=== PATIENT | female | born 1935 | race Caucasian/White ===

== ENCOUNTER 2016-12-11 10:49 | Emergency (ER) | payer OTHER ==
[~2016-12-11 10:49] MED LIST: ALBUTEROL 3 ML3 ML INH; AMITRIPTYLINE150 M2 PO; ASPIRIN CHILDRE81 MG PO; CEFTIN500 MG PO; CO Q-1050 MG PO; FERROUS SULFAT325 M1 PO; FISH OIL CONCEN1 SGL PO; FOLIC ACID 1 MG PO; FOLIC ACID0.4 MG PO; LEVOTHYROXIN0.088 M1 PO; LISINOPRIL10 MG PO; LOPRESSOR 25MG25 MG PO; METFORMIN HCL500 M3 PO; MOXIFLOXACIN H400 M1 PO; PERCOCET 5-3251 EACH PO; ROZEREM8 MG PO; SIMVASTATIN80 MG PO; SPIRIVA 18 MCG18 MCG INH; SYMBICORT 160/41 PUF INH; TUDORZA PR400 MCG/Ac INH; VITAMIN D32000 UNI1 PO
--- NOTE | 2016-12-11 12:23 | ED AMS/SEIZURE/WEAK/DIZZY ---
See Addendum History of Present Illness General Chief Complaint: Hip Injury Stated Complaint: BIBA KNEE AND HIP PAIN] Source: patient, family, old records Exam Limitations: poor historian Vital Signs & Intake/Output Vital Signs & Intake/Output Vital Signs Date Time Temp Pulse Resp B/P Pulse O2 O2 Flow FiO2 Ox Delivery Rate 12/11 1055 96.1 91 20 165/73 98 Room Air Allergies Coded Allergies: azithromycin (Mild, INTESTINAL BLEEDING 04/09/16) Reconcile Medications Aclidinium Sulphur (Tudorza Pressair) 400 MCG/ACTUATION AER.POW.BA 1 PUF INH BID COPD (Reported) Albuterol Sulfate (Proventil) 2.5 MG/3 ML NEB 3 ML INH Q4P PRN SHORTNESS OF BREATH Amitriptyline HCl 150 MG TABLET 1 TAB PO QPM DEPRESSION (Reported) Aspirin (Children's Aspirin) 81 MG TAB.CHEW 1 TAB PO DAILY HEART HEALTH ( Reported) Because of your GI bleed, do NOT take this medicine from 06/18/14-06/24/14. You may start taking this medicine again 06/25/14 per your regular daily routine. Budesonide/Formoterol Fumara (Symbicort 160-4.5 Mcg Inhaler) 160 MCG/4.5 MCG PUF 2 PUF INH DAILY COPD (Reported) Cholecalciferol (Vitamin D3) (Vitamin D3) 2,000 UNIT TABLET 1 TAB PO DAILY SUPPLEMENT (Reported) Coenzyme Q10 (Co Q-10) 50 MG CAP 2 TAB PO DAILY SUPPLEMENT (Reported) Ferrous Sulfate 325 MG TAB 325 MG PO TID low blood count Please take this supplement for 2 weeks with your other home medications. Folic Acid 1 MG TAB 1 MG PO DAILY FOLIC ACID SUPPLEMENT (Reported) Levothyroxine Sodium 0.088 MG TAB 1 TAB PO DAILY <THYROID (Reported) Lisinopril 10 MG TABLET 1 TAB PO DAILY HEART (Reported) Metformin HCl 500 MG TABLET 1 TAB PO BID DIABETES (Reported) Metoprolol Tartrate 25 MG TABLET 1 TAB PO DAILY HEART (Reported) OMEGA-3 FATTY ACIDS (Fish Oil Concentrate) 1,000 MG CAPSULE 1 TAB PO DAILY SUPPLEMENT (Reported) Simvastatin (Zocor) 80 MG TABLET 1 TAB PO QPM CHOLESTEROL (Reported) Tiotropium [place]ph[place] (Spiriva) 18 MCG CAP 1 CAP INH DAILY COPD (Reported) Triage Note: 81 YO FEMALE BIBA FROM HOME. EMS WAS CALLED FOR LOW BLOOD SUGAR. ON EMS ARRIVAL PTS BLOOD SUGAR WAS 109, PTS FAMILY WAS ALSO CONCERNED THAT PT SLID OUT OF CHAIR THIS AM LANDING ON BILATERAL KNEES. NO OBVIOUS INJURY NOTED. PT C/O R SIDED HIP PAIN. PT ABLE TO MOVE ALL EXTREMITIES. PT ALERT AND ORIENTED X3 AT THIS TIME. FAMILY AT BEDSIDE Triage Nurses Notes Reviewed? yes HPI: Patient presents for evaluation of altered mental status that began about 8:00 this morning with generalized weakness and difficulty ambulating. The family was concerned that since the patient does not maintain a proper diabetic diet, she could be in a diabetic coma. They contacted paramedics who tested her fingerstick blood sugar level at 140. She has a history of severe hip and knee pains secondary to arthritis. She had x-rays done last week confirming the arthritis. Recently she has been unable to walk without assistance secondary to pain. A cortisone injection is pending for this. Past History Travel History Traveled to [place] past 21 day No Medical History Any Pertinent Medical History? see below for history Neurological: NONE EENT: cataracts Cardiovascular: hypertension Respiratory: emphysema, O2 DEP @ 2L Gastrointestinal: NONE Hepatic: NONE Renal: NONE Musculoskeletal: NONE Psychiatric: NONE Endocrine: diabetes, hypothyroidism Blood Disorders: NONE Cancer(s): L BREAST CANCER ACCESS SPEC/Reproductive: NONE History of MRSA: No History of VRE: No History of CDIFF: No Tetanus Vaccine: 04/06/13 Surgical History Surgical History: non-contributory Psychosocial History Who do you live with Spouse Services at Home None What is your primary language Finnish Tobacco Use: Never used Family History Hx Contributory? No Review of Systems Review of Systems Constitutional: Reports: weakness. EENTM: Reports: no symptoms. Respiratory: Reports: no symptoms. Cardiovascular: Reports: no symptoms. GI: Reports: no symptoms. Genitourinary: Reports: no symptoms. Musculoskeletal: Reports: see HPI. Skin: Reports: no symptoms. Neurological/Psychological: Reports: cognitive dysfunction. Hematologic/Endocrine: Reports: no symptoms. Immunologic/Allergic: Reports: no symptoms. All Other Systems: Reviewed and Negative Physical Exam Physical Exam General Appearance: SEE BELOW Comments: Gen.: Well-nourished, well-developed, no acute respiratory distress. Moderate distress secondary to right hip and knee pain. Head: Normocephalic, atraumatic. Eyes: Normal inspection bilaterally Ears: Normal inspection bilaterally Nose: Normal inspection Throat/mouth : Moist mucosa Neck: Supple, full range of motion, no goiter Heart: Regular rate and rhythm, no murmurs rubs or gallops Lungs: Clear to auscultation bilaterally with normal air entry Chest: Nontender Back: Normal range of motion Abdomen: Soft, nontender, nondistended, normal bowel sounds Extremities: Normal range of motion grossly, equal radial pulses, no cyanosis clubbing or edema, no ecchymoses or soft tissue swelling in the area of the right hip or right knee. Neurologic: Cranial nerves grossly intact, speech is clear Skin: warm and dry Psychiatric: Generally Calm but anxious at times it secondary to pain, cooperative, no apparent delusions or hallucinations Core Measures ACS in differential dx? No CVA/TIA Diagnosis: No Severe Sepsis Present: No Septic Shock Present: No Progress Differential Diagnosis: DEHYDRATION, ANEMIA, ELECTROLYTE ABNORMALITY Plan of Care: Orders Procedure Date/time Status Add-on Test (ER Only) 12/11 1342 Active URINE DRUGS OF ABUSE 12/11 1314 Active URINALYSIS 12/11 1222 Complete THYROID STIMULATING HORMONE 12/11 1222 Complete COMPREHENSIVE METABOLIC PANEL 12/11 1222 Complete CBC WITHOUT DIFFERENTIAL 12/11 1222 Complete Laboratory Tests 12/11/16 1314: Methadone Screen Pending, Barbiturate Screen Pending, Ur Phencyclidine Scrn Pending, Amphetamines Screen Pending, U Benzodiazepines Scrn Pending, Urine Cocaine Screen Pending, Urine Cannabis Screen Pending, Urine Color YEL, Urine Clarity CLEAR, Urine pH 7.0, Ur Specific [place] <= 1.005, Urine Protein NEG, Urine Ketones NEG, Urine Nitrite NEG, Urine Bilirubin NEG, Urine Urobilinogen 0.2, Ur Leukocyte Esterase NEG, Ur Microscopic EXAM NOT REQUIRED, Urine Hemoglobin NEG, Urine Glucose NEG 12/11/16 1238: Anion Gap 9, Estimated GFR > 60, BUN/Creatinine Ratio 20.0, Glucose 122 H, Calcium 9.8, Total Bilirubin 0.6, AST 19, ALT 31, Alkaline Phosphatase 56, Total Protein 7.0, Albumin 4.2, Globulin 2.8, Albumin/Globulin Ratio 1.5, TSH 0.394, CBC w Diff NO MAN DIFF REQ, RBC 3.83 L, MCV 95.3, MCH 32.2 H, RDW 12.4, MPV 7.4, Gran % 75.5 H, Lymphocytes % 18.3 L, Monocytes % 5.5, Eosinophils % 0.4, Basophils % 0.3, Absolute Granulocytes 5.9, Absolute Lymphocytes 1.4, Absolute Monocytes 0.4, Absolute Eosinophils 0, Absolute Basophils 0, PUBS MCHC 33.8 Initial ED EKG: none Comments: 12/11/2016 2:23:10 PM I have updated the patient and her family on test results. She is much more comfortable after medications here in the emergency department. We have a long discussion about the low sodium level and she will fluid restrict (the patient tends to drink a lot of fluid and typically eats only yogurt and banana and toast). Departure Departure Disposition: HOME OR SELF CARE Condition: Stable Clinical Impression Primary Impression: Arthritis pain Secondary Impressions: Hyponatremia Referrals: EDGAR CHIN,LANA Rawls (PCP/Family) Additional Instructions: Limit free water to 1.5 L per day. Try to enhance the nutritional intake. Follow-up with your primary care doctor for recheck of your sodium level this week. Return if any concerns or sudden worsening. Thank you for choosing the [facility] Emergency Department for your care. It was a pleasure to serve you today. Martín Lemus M.D. [facility] Departure Forms: Customer Survey General Discharge Information
[2016-12-11 12:44] LABS: ABSOLUTE BASOPHIL COUNT 0 /CUMM (0.0-0.2); ABSOLUTE EOSINOPHIL COUNT 0 /CUMM (0.0-0.7); ABSOLUTE GRANULOCYTE CT 5.9 /CUMM (1.4-6.5); ABSOLUTE LYMPH COUNT 1.4 /CUMM (1.2-3.4); ABSOLUTE MONOCYTE COUNT 0.4 /CUMM (0.10-0.60); BASOPHIL % 0.3 % (0.0-2.0); EOSINOPHIL % 0.4 % (0-5); GRANULOCYTE % 75.5 % (42.2-75.2); HEMATOCRIT 36.5 % (37-47); MEAN CORPUSCULAR HGB 32.2 PG (27.0-31.0); MEAN CORPUSCULAR HGB CONC 33.8 G/DL (33.0-37.0); MEAN CORPUSCULAR VOLUME 95.3 FL (81.0-99.0); MEAN PLATELET VOLUME 7.4 FL (7.4-10.4); PLATELET COUNT 223 /CUMM (130-400); RBC DISTRIBUTION WIDTH 12.4 % (11.5-14.5); RED BLOOD CELL CT 3.83 /CUMM (4.20-5.40); WHITE BLOOD CELL COUNT 7.8 /CUMM (4.8-10.8)
[2016-12-11] MEDS ORDERED: METOPROLOL TART25 M1 PO (12:48)
[2016-12-11] MEDS ORDERED: LISINOPRIL10 M1 PO (12:51)
[2016-12-11 14:39] VITALS: BP 142/84
== END 2016-12-11 14:40 ==
LOC: ERH 10:49
PROVIDERS: Emergency Medicine
DX: E87.1 Hypo-osmolality and hyponatremia (principal); M16.10 Unilateral primary osteoarthritis, unspecified hip; M17.9 Osteoarthritis of knee, unspecified
CPT/HCPCS: 80307; 81003; 96372

== ENCOUNTER 2017-03-31 15:22 | Emergency (ER) | payer OTHER ==
[~2017-03-31 15:22] MED LIST changes: +LISINOPRIL10 M1 PO; +METOPROLOL TART25 M1 PO
--- NOTE | 2017-03-31 15:43 | ED PSYCHIATRIC COMPLAINT ---
History of Present Illness General Chief Complaint: Psychiatric Related Complaint Stated Complaint: BIBA PSYCH EVAL Source: family, old records Exam Limitations: dementia Vital Signs & Intake/Output Vital Signs & Intake/Output Vital Signs Date Time Temp Pulse Resp B/P B/P Pulse O2 O2 Flow FiO2 Mean Ox Delivery Rate 03/31 1912 97.0 81 16 133/62 97 Nasal 2.0L Cannula 03/31 1717 Nasal Cannula 03/31 1525 96.4 86 24 126/58 85 Nasal 2.0L Cannula Allergies Coded Allergies: azithromycin (Mild, INTESTINAL BLEEDING 04/09/16) Reconcile Medications Aclidinium [place] (Tudorza Pressair) 400 MCG/ACTUATION AER.POW.BA 1 PUF INH BID COPD (Reported) Albuterol Sulfate (Proventil) 2.5 MG/3 ML NEB 3 ML INH Q4P PRN SHORTNESS OF BREATH Amitriptyline HCl 150 MG TABLET 1 TAB PO QPM DEPRESSION (Reported) Aspirin (Children's Aspirin) 81 MG TAB.CHEW 1 TAB PO DAILY HEART HEALTH ( Reported) Because of your GI bleed, do NOT take this medicine from 06/18/14-06/24/14. You may start taking this medicine again 06/25/14 per your regular daily routine. Budesonide/Formoterol Fumara (Symbicort 160-4.5 Mcg Inhaler) 160 MCG/4.5 MCG PUF 2 PUF INH DAILY COPD (Reported) Cholecalciferol (Vitamin D3) (Vitamin D3) 2,000 UNIT TABLET 1 TAB PO DAILY SUPPLEMENT (Reported) Coenzyme Q10 (Co Q-10) 50 MG CAP 2 TAB PO DAILY SUPPLEMENT (Reported) Ferrous Sulfate 325 MG TAB 325 MG PO TID low blood count Please take this supplement for 2 weeks with your other home medications. Folic Acid 1 MG TAB 1 MG PO DAILY FOLIC ACID SUPPLEMENT (Reported) Levothyroxine Sodium 0.088 MG TAB 1 TAB PO DAILY <THYROID (Reported) Lisinopril 10 MG TABLET 1 TAB PO DAILY HEART (Reported) Metformin HCl 500 MG TABLET 1 TAB PO BID DIABETES (Reported) Metoprolol Tartrate 25 MG TABLET 1 TAB PO DAILY HEART (Reported) [NONE] STOOL SPECIMEN FOR C DIFF OMEGA-3 FATTY ACIDS (Fish Oil Concentrate) 1,000 MG CAPSULE 1 TAB PO DAILY SUPPLEMENT (Reported) Simvastatin (Zocor) 80 MG TABLET 1 TAB PO QPM CHOLESTEROL (Reported) Tiotropium [place] (Spiriva) 18 MCG CAP 1 CAP INH DAILY COPD (Reported) Triage Note: PT BIBA FROM HOME FOR INCREASED AGITATION WITH HX OF DEMENTIA. PT CALM AND EYES CLOSED ON ARRIVAL. PER EMS, PT WAS QUIET DURING TRANSPORT AND WAS MORE VERBALLY AGITATED AT HOME. Triage Nurses Notes Reviewed? yes HPI: Patient has a history of dementia however is having agitated outbursts at home. Symptoms have been worsening over the past few weeks. Patient will be in her usual state of mental health and then just explode verbally. Patient was screaming at the doctor on the phone today so the patient was sent in for geropsychiatric evaluation. Family states that there've been no fevers. They state that her symptoms have been worsening. She went to [facility] over the weekend and they prescribed Xanax and sent her home. Past History Medical History Any Pertinent Medical History? see below for history Neurological: NONE EENT: cataracts Cardiovascular: hypertension Respiratory: emphysema, O2 DEP @ 2L Gastrointestinal: NONE Hepatic: NONE Renal: NONE Musculoskeletal: NONE Psychiatric: NONE Endocrine: diabetes, hypothyroidism Blood Disorders: NONE Cancer(s): L BREAST CANCER SEO INTERN/Reproductive: NONE History of MRSA: No History of VRE: No History of CDIFF: No Tetanus Vaccine: 04/06/13 Surgical History Surgical History: non-contributory Psychosocial History Who do you live with Spouse Services at Home None What is your primary language Georgian Tobacco Use: Quit >30 days ago ETOH Use: denies use Illicit Drug Use: denies illicit drug use Family History Hx Contributory? No Review of Systems Review of Systems Constitutional: Reports: no symptoms. Neurological/Psychological: Reports: see HPI. Physical Exam Physical Exam General Appearance: well developed/nourished, mild distress Head: atraumatic, normal appearance Eyes: Bilateral: PERRL, EOMI. Ears, Nose, Throat: normal pharynx, normal ENT inspection Neck: normal inspection, supple Respiratory: normal breath sounds, chest non-tender, no respiratory distress, lungs clear Cardiovascular: regular rate/rhythm, normal peripheral pulses Gastrointestinal: normal bowel sounds, soft, non-tender, no organomegaly Neurological/Psychiatric: no motor/sensory deficits, agitated SAD PERSONS Done? CRISIS CONSULT OBTRAINED Progress Differential Diagnosis: dementia, drug intoxication, drug overdose, drug withdrawal, electrolyte abnormality Plan of Care: Orders Procedure Date/time Status ED CRISIS PSYCH CONSULT 03/31 1806 Active Straight Cath 03/31 1628 Active Continuous Observation Monitor 03/31 154 Active URINE DRUGS OF ABUSE 03/31 154 Complete URINALYSIS 03/31 154 Complete ETHANOL 03/31 1542 Complete COMPREHENSIVE METABOLIC PANEL 03/31 154 Complete CBC WITHOUT DIFFERENTIAL 03/31 154 Complete EKG 03/31 154 Active Laboratory Tests 03/31/17 1702: Urine Opiates Screen < 100.00, Methadone Screen 86, Barbiturate Screen < 60, Ur Phencyclidine Scrn < 6.00, Amphetamines Screen < 100, U Benzodiazepines Scrn 165 , Urine Cocaine Screen < 50, Urine Cannabis Screen < 5.00, Urine Color YEL, Urine Clarity CLEAR, Urine pH 6.0, Ur Specific [place] 1.010, Urine Protein NEG, Urine Ketones NEG, Urine Nitrite NEG, Urine Bilirubin NEG, Urine Urobilinogen 0.2, Ur Leukocyte Esterase SMALL H, Ur Microscopic SEDIMENT EXAMINED, Urine WBC 1-3 H, Urine Bacteria FEW H, Urine Hemoglobin SMALL H, Urine Glucose NEG 03/31/17 1615: Anion Gap 8, Estimated GFR > 60, BUN/Creatinine Ratio 22.0, Glucose 125 H, Calcium 9.8, Total Bilirubin 0.3, AST 17, ALT 32, Alkaline Phosphatase 51, Total Protein 6.8, Albumin 4.1, Globulin 2.7, Albumin/Globulin Ratio 1.5, CBC w Diff NO MAN DIFF REQ, RBC 3.80 L, MCV 93.9, MCH 31.9 H, RDW 12.1, MPV 7.9, Gran % 82.9 H, Lymphocytes % 10.0 L, Monocytes % 4.7, Eosinophils % 2.0, Basophils % 0.4, Absolute Granulocytes 10.2 H, Absolute Lymphocytes 1.2, Absolute Monocytes 0.6, Absolute Eosinophils 0.2, Absolute Basophils 0, PUBS MCHC 33.9, Serum Alcohol < 10.0 Initial ED EKG: NSR, no ST T wave changes Prior EKG: unchanged Comments: The patient has been seen and evaluated by the patient's clinician. Patient stable for discharge. Departure Departure Disposition: HOME OR SELF CARE Condition: Stable Clinical Impression Primary Impression: Dementia Referrals: EDGAR CHIN,LANA Rawls (PCP/Family) Additional Instructions: FOLLOW UP WITH GERIANTOLOGIST ZAIRA WILL CALL FOR APPOINMENT RETURN FOR ANY CONCERNS Departure Forms: Customer Survey General Discharge Information
[2017-03-31 16:34] LABS: ABSOLUTE BASOPHIL COUNT 0 /CUMM (0.0-0.2); ABSOLUTE EOSINOPHIL COUNT 0.2 /CUMM (0.0-0.7); ABSOLUTE GRANULOCYTE CT 10.2 /CUMM (1.4-6.5); ABSOLUTE LYMPH COUNT 1.2 /CUMM (1.2-3.4); ABSOLUTE MONOCYTE COUNT 0.6 /CUMM (0.10-0.60); BASOPHIL % 0.4 % (0.0-2.0); GRANULOCYTE % 82.9 % (42.2-75.2); HEMATOCRIT 35.7 % (37-47); MEAN CORPUSCULAR HGB 31.9 PG (27.0-31.0); MEAN CORPUSCULAR HGB CONC 33.9 G/DL (33.0-37.0); MEAN CORPUSCULAR VOLUME 93.9 FL (81.0-99.0); MEAN PLATELET VOLUME 7.9 FL (7.4-10.4); PLATELET COUNT 232 /CUMM (130-400); RBC DISTRIBUTION WIDTH 12.1 % (11.5-14.5); WHITE BLOOD CELL COUNT 12.3 /CUMM (4.8-10.8)
--- NOTE | 2017-03-31 17:49 | RADIOLOGY REPORT ---
EXAMINATION: XR PORTABLE CHEST CLINICAL INFORMATION: Shortness of breath COMPARISON: 12/17/2016 TECHNIQUE: Portable frontal view of the chest was obtained. FINDINGS: The lungs are hyperexpanded, with known severe emphysema. No consolidation, edema, or effusion. No pneumothorax. The cardiac mediastinal silhouette is unchanged, with a calcified aorta. IMPRESSION: Emphysema. No acute pulmonary findings.
[2017-03-31 20:49] VITALS: BP 114/55
--- NOTE | 2017-03-31 21:13 | NUR ---
Case mgmnt TSF: I was called back by oncdanay RN Liam from [facility]. I set up services for patient. Nursing and SW consult. They will call us back if any issues. I will fax over all clinical. I've updated Lena from crisis. Case mgmnt continuing to follow.
--- NOTE | 2017-03-31 21:45 | ED PSYCH CRISIS CONSULTATION ---
Crisis Consult Basic Assessment Date of Consult: 03/31/17 Responsible Person/Accompanied By: N/A Insurance Authorization: Insurance #1: Insurance name: [facility] Phone number: Policy number: [id number] Group number: [id number] Authorization number: ED Provider: Patient's ED Provider: LANA BRITTON MD Primary Care Physician: Patient's PCP: LANA HERNÁNDEZ MD PCP's Current Psychiatrist: None Chief Complaint: Psychiatric Related Complaint Patient's Quote: "I'm extremely nervous, more then I've ever been." Present Illness: The patient is a 81 year old, , female presenting to the ED, after her daughter (Aminata [phone]), felt overwhelmed with the patients "demanding attitude." The patient is oriented to person, place and is aware that it is 2016, however she believes that it is January and Wednesday. The patients other daughter, Janelle Bueno ([phone]), was present in the ED to provide collateral. The patient presents calm, with repetitive speech, ruminating on her anxiety, however did not appear overtly anxious at the time. The patient lives at home with her and her daughter, Aminata, who helps to care for her. The patient does have difficulty breathing and requires Oxygen 24 hours a day, noting that her anxiety increases when she has trouble breathing. The patient denies any current or history of SI / HI / AH / VH. She denies any current or history of mental health or substance abuse issues or treatment. Per Janelle the patient did take "Valium," when she was younger, "but she had 5 kids." Janelle notes that they took the patient to [facility] over the weekend , for her increased anxiety and anger and they prescribed medications. Janelle is not aware if the patient spoke with the Crisis team at [facility]. Janelle notes that they did follow up with the patients primary care physician Cher Babcock APRN, who recommended that they see Dr. Kaylee Mccallum, who specializes in Geriatric Medicine. Janelle believes that the patient is not a risk to herself or others and can return home to follow up with outpatient. PATRICIA spoke to the patients other daughter, Aminata, who notes that she would like the patient to stay in the ED for a few days, so she can have a break. Aminata notes that the patient has been angry and demanding. Aminata notes that the patient has threatened to hit her, if she does not get her way. Aminata confirms that the patinet has never actually hit her or been violent towards her. PATRICIA discussed visiting nurse services and having a social work consult in the home, to assess for services. Amniata believes that having a social media assistant come in the home to evaluate, would be beneficial, as she states that she needs help caring for the patient. Patient's Address: [address] [place] [address] Other Phone Number: [phone] NANCY Who Do You Live With? Spouse Family/Informants Interviewed: Patricia spoke to 2 of the patients daughters, Aminata ) and Janelle ([phone]. Allergies - Coded Allergies: azithromycin (Mild, INTESTINAL BLEEDING 04/09/16) Current Medications - Scheduled Medications Aclidinium [place] (Tudorza Pressair) 400 MCG/ACTUATION AER.POW.BA 1 PUF INH BID COPD (Reported) Entered as Reported by CAITLIN BURT on 06/16/14 005 Amitriptyline HCl 150 MG TABLET 1 TAB PO QPM DEPRESSION (Reported) Entered as Reported by CAITLIN BURT on 06/16/14 005 Aspirin (Children's Aspirin) 81 MG TAB.CHEW 1 TAB PO DAILY HEART HEALTH ( Reported) Entered as Reported by CAITLIN BURT on 06/16/14 005 Budesonide/Formoterol Fumara (Symbicort 160-4.5 Mcg Inhaler) 160 MCG/4.5 MCG PUF 2 PUF INH DAILY COPD (Reported) Entered as Reported by CAITLIN BURT on 06/16/14 005 Cholecalciferol (Vitamin D3) (Vitamin D3) 2,000 UNIT TABLET 1 TAB PO DAILY SUPPLEMENT (Reported) Entered as Reported by CAITLIN BURT on 06/16/14 005 Coenzyme Q10 (Co Q-10) 50 MG CAP 2 TAB PO DAILY SUPPLEMENT (Reported) Entered as Reported by CAITLIN BURT on 06/16/14 005 Ferrous Sulfate 325 MG TAB 325 MG PO TID low blood count 14 Days Folic Acid 1 MG TAB 1 MG PO DAILY FOLIC ACID SUPPLEMENT (Reported) Entered as Reported by LATOYA DUQUE MD on 08/13/15 0551 Levothyroxine Sodium 0.088 MG TAB 1 TAB PO DAILY <THYROID #90 (Reported) Entered as Reported by CAITLIN BURT on 06/16/14 0052 Lisinopril 10 MG TABLET 1 TAB PO DAILY HEART #90 (Reported) Entered as Reported by TWYLA ODOM on 12/11/16 1251 Metformin HCl 500 MG TABLET 1 TAB PO BID DIABETES (Reported) Entered as Reported by CAITLIN BURT on 06/16/14 0055 Metoprolol Tartrate 25 MG TABLET 1 TAB PO DAILY HEART 90 Days (Reported) Entered as Reported by TWYLA ODOM on 12/11/16 1248 OMEGA-3 FATTY ACIDS (Fish Oil Concentrate) 1,000 MG CAPSULE 1 TAB PO DAILY SUPPLEMENT (Reported) Entered as Reported by CAITLIN BURT on 06/16/14 0054 Simvastatin (Zocor) 80 MG TABLET 1 TAB PO QPM CHOLESTEROL (Reported) Entered as Reported by CAITLIN BURT on 06/16/14 0051 Tiotropium Adair (Spiriva) 18 MCG CAP 1 CAP INH DAILY COPD #30 (Reported) Entered as Reported by MYLES ANAYA MD on 08/14/15 1435 Scheduled PRN Medications Albuterol Sulfate (Proventil) 2.5 MG/3 ML NEB 3 ML INH Q4P PRN SHORTNESS OF BREATH 30 Days Prescribed by MYLES ANAYA MD on 08/15/15 Miscellaneous Medications [NONE] Prescribed by PETER OROZCO MD on 12/11/16 Laboratory Results: Laboratory Tests 03/31/17 1702: Urine Opiates Screen < 100.00, Methadone Screen 86, Barbiturate Screen < 60, Ur Phencyclidine Scrn < 6.00, Amphetamines Screen < 100, U Benzodiazepines Scrn 165 , Urine Cocaine Screen < 50, Urine Cannabis Screen < 5.00, Urine Color YEL, Urine Clarity CLEAR, Urine pH 6.0, Ur Specific [place]o 1.010, Urine Protein NEG, Urine Ketones NEG, Urine Nitrite NEG, Urine Bilirubin NEG, Urine Urobilinogen 0.2, Ur Leukocyte Esterase SMALL H, Ur Microscopic SEDIMENT EXAMINED, Urine WBC 1-3 H, Urine Bacteria FEW H, Urine Hemoglobin SMALL H, Urine Glucose NEG 03/31/17 1615: Anion Gap 8, Estimated GFR > 60, BUN/Creatinine Ratio 22.0, Glucose 125 H, Calcium 9.8, Total Bilirubin 0.3, AST 17, ALT 32, Alkaline Phosphatase 51, Total Protein 6.8, Albumin 4.1, Globulin 2.7, Albumin/Globulin Ratio 1.5, CBC w Diff NO MAN DIFF REQ, RBC 3.80 L, MCV 93.9, MCH 31.9 H, RDW 12.1, MPV 7.9, Gran % 82.9 H, Lymphocytes % 10.0 L, Monocytes % 4.7, Eosinophils % 2.0, Basophils % 0.4, Absolute Granulocytes 10.2 H, Absolute Lymphocytes 1.2, Absolute Monocytes 0.6, Absolute Eosinophils 0.2, Absolute Basophils 0, PUBS MCHC 33.9, Serum Alcohol < 10.0 Past History Past Medical History Neurological: NONE EENT: cataracts Cardiovascular: hypertension Respiratory: emphysema, O2 DEP @ 2L Gastrointestinal: NONE Hepatic: NONE Renal: NONE Musculoskeletal: NONE Psychiatric: anxiety Endocrine: diabetes, hypothyroidism Blood Disorders: NONE Cancer(s): L BREAST CANCER 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 Physical Limitations (Interventions): The patient does have difficulty with mobility and requires constant Oxygen. Psychiatric Treatment History Psych Treatment Psychiatric Treatment No Inpatient Treatment No Outpatient Treatment No Location of Treatment N/A Reason for Treatment N/A Dates of Treatment N/A Response to Treatment N/A Diagnosis by History: N/A Substance Use/Abuse History Drug Use/Abuse Substances Used/Abused No First Use N/A Last Used N/A How much used/taken N/A How often N/A For how long N/A Route of use N/A Substance Abuse Treatment Substance Abuse Treatment Past Substance Abuse TX No Inpatient Treatment No Outpatient Treatment No Location of Treatment N/A Reason for Treatment N/A Dates of Treatment N/A Response to Treatment N/A Comments: N/A Current Mental Status Mental Status Orientation: Current situation, Person, Place Affect: Anxious Speech: Soft (repetitive) Neuro-vegetative: Anxiety Appearance Appearance- Dress/Hygiene: The patient was sitting in bed, in hospital attire, neat, clean and well kempt. Behaviors Thought Process: WNL Thought Content: The patient was focused on her anxiety and her breathing issues. Memory: WNL Insight: Fair SI/HI Risk Assessment Past Suicidal Ideation/Attempts No Current Suicidal Ideation/Att No Past Homicidal Ideation/Att: No Current Homicidal Ideation/Attempts No Degree of Intent: None Danger To: N/A Gravely Disabled: N/A Risk Factors: age (under 24/over 65), high anxiety/distress Lethality Ratin PTSD Checklist PTSD Done? patient declined (Pt. denies trauma or abuse hx.) ED Management Sitter: Yes Restraints: No DSM5/PS Stressors/Medical Prob Diagnosis' (DSM 5, Stressors, Medical): F41.9 Unspecified Anxiety Disorder Current GAF: 55 Comments: N/A Departure Disposition Psych Medical Clearance Date: 03/31/17 Medically Cleared at: 0 Time Started: 1929 Time Ended: 2029 Psychiatrist Consulted: Dr. Hart Date Disposition Established: 03/31/17 Time Disposition Established: 2044 Plan for Disposition - Modality: D/C home to follow up with VNA and Dr. Kaylee Mccallum Facility: VNA arranged through Case Management Contact: N/A Telephone: N/A Rationale for Disposition: The patient presents with irritabilty and anxiety, related to her difficulty breathing. Her family helps to care for her, however are struggling with her increasing needs. She denies any SI / HI / VH / AH. Per her daughters, she has been increasingly more agitated and confrontational, when she does not get her way. Case discussed with Dr. Hart and he does not find her to be an acute risk to self or others and will discharge her to follow up with Dr. Kaylee Mccallum, who they were referred to by her PCP. SW discussed a VNA referral to help assess for services in the home and the family was in agreement. Yolanda from Case Management assisted in setting up the referral to the VNA, a social media assistant will be requested. Additional Instructions: N/A Referrals LANA HERNÁNDEZ MD (PCP/Family)
== END 2017-03-31 21:15 ==
LOC: ERH 15:22
PROVIDERS: Emergency Medicine
DX: F03.90 Unspecified dementia, unspecified severity, without behavioral disturbance, psychotic disturbance, mood disturbance, and anxiety (principal); I10 Essential (primary) hypertension; E11.9 Type 2 diabetes mellitus without complications; E03.9 Hypothyroidism, unspecified; Z87.891 Personal history of nicotine dependence; Z79.84 Long term (current) use of oral hypoglycemic drugs
CPT/HCPCS: 80307; 81001; 93005; 93010; G0463; G0480

== ENCOUNTER 2017-06-08 15:19 | Inpatient (IN) | payer OTHER ==
[~2017-06-08] VITALS: Ht 157.5 cm; Wt 54.4 kg
[~2017-06-08 15:19] MED LIST changes: -ASPIRIN CHILDRE81 MG PO; +CHILDREN'S ASPI81 M1 PO; +CO Q-10100 MG PO; -CO Q-1050 MG PO; +FISH OIL CONC1000 M1 PO; -FISH OIL CONCEN1 SGL PO; -FOLIC ACID 1 MG PO; +FOLIC ACID1 M1 PO; -LEVOTHYROXIN0.088 M1 PO; +LEVOXYL88 MCG PO; -SIMVASTATIN80 MG PO; -SYMBICORT 160/41 PUF INH; +SYMBICORT 16010.2 GM INH; +ZOCOR80 M1 PO
--- NOTE | 2017-06-08 15:19 | NUR ---
EVITA FROM HOME FOR INCREASING SOB. UPON ARRIVAL PT 89% ON 2L WITH LABORED BREATHING. O2 INCREASED TO 4 LITERS AND SATS NOW 93%. PT STATES SOB STARTED THIS AM. USED HER INHALERS WITH NO IMPROVEMENT. ALERT, COOPERATIVE. PALE, SKIN COOL AND DRY
--- NOTE | 2017-06-08 15:36 | NUR ---
PT TO ROOM 5. PLACED ON MONITOR IN NSR. SATS 93% ON 4 LITERS. RT NOTIFIED OF NEB TX ORDER
--- NOTE | 2017-06-08 15:46 | NUR ---
NEB TX BEING GIVEN.
--- NOTE | 2017-06-08 15:48 | NUR ---
SATS 98% DURING NEB TX. PT STATES SHE FEELS LESS S0B
[2017-06-08] MEDS ORDERED: ALPRAZOLAM0.25 M1 PO (15:51)
[2017-06-08] MEDS ORDERED: B-12 DOTS500 MCG PO (15:54)
[2017-06-08] MEDS ORDERED: FERROUS SULFAT325 M3 PO (16:02)
[2017-06-08] MEDS ORDERED: LIPO-FLAVONOID1 EACH PO (16:03)
[2017-06-08] MEDS ORDERED: LISINOPRIL5 M1 PO (16:04)
[2017-06-08] MEDS ORDERED: METOPROLOL TART25 M1 PO (16:05)
[2017-06-08] MEDS ORDERED: TUDORZA PRESS400 MCG INH (16:06)
[2017-06-08] MEDS ORDERED: PROAIR HFA8.5 GM INH (16:07)
--- NOTE | 2017-06-08 16:13 | ED DYSPNEA/ASTHMA COMPLAINT ---
See Addendum History of Present Illness General Chief Complaint: Dyspnea (COPD, CHF, Other) Stated Complaint: BIBA FOR SOB Source: patient Exam Limitations: no limitations Vital Signs & Intake/Output Vital Signs & Intake/Output Vital Signs Date Time Temp Pulse Resp B/P B/P Pulse O2 O2 Flow FiO2 Mean Ox Delivery Rate 06/08 1810 97.8 95 24 142/72 95 Nasal 2.0L Cannula 06/08 1755 97 Nasal 4.0L Cannula 06/08 1546 Nasal 4.0L Cannula 06/08 1538 Nasal 4.0L Cannula 06/08 1538 99 24 177/86 93 Nasal 4.0L Cannula Allergies Coded Allergies: azithromycin (Mild, INTESTINAL BLEEDING 04/09/16) Reconcile Medications Aclidinium [place] (Tudorza Pressair) 400 MCG/ACTUATION AER.POW.BA 2 PUFF INH DAILY RESPIRATORY (Reported) Albuterol Sulfate (Proair Hfa) 90 MCG HFA.AER.AD 2 PUF INH Q4H PRN RESPIRATORY (Reported) Alprazolam 0.25 MG TABLET 1 TAB PO AD ANXIETY (Reported) Amitriptyline HCl 150 MG TABLET 1 TAB PO QPM DEPRESSION (Reported) Aspirin (Children's Aspirin) 81 MG TAB.CHEW 1 TAB PO DAILY HEART/BLOOD ( Reported) Bioflav,Lemon/Vit Bcomp,C (Lipo-Flavonoid Plus Caplet) 200 MG-100 MG TABLET 2 CAP PO DAILY SUPPLEMENT (Reported) Budesonide/Formoterol Fumarate (Symbicort 160-4.5 Mcg Inhaler) 160 MCG-4.5 MCG/ ACTUATION HFA.AER.AD 2 PUF INH DAILY RESPIRATORY (Reported) Cholecalciferol (Vitamin D3) (Vitamin D3) 2,000 UNIT TABLET 1 TAB PO DAILY SUPPLEMENT (Reported) Cyanocobalamin (Vitamin B-12) (B-12 Dots) (Unknown Strength) TABLET (Unknown Dose) PO DAILY SUPPLEMENT (Reported) Ferrous Sulfate 325 MG (65 MG IRON) TABLET 1 TAB PO DAILY SUPPLEMENT ( Reported) Folic Acid 1 MG TABLET 1 TAB PO DAILY SUPPLEMENT (Reported) Levothyroxine Sodium (Levoxyl) 88 MCG TABLET 1 TAB PO DAILY THYROID (Reported ) Lisinopril (Unknown Strength) TABLET (Unknown Dose) PO DAILY HEART/BP ( Reported) Metformin HCl 500 MG TABLET 1 TAB PO DAILY DM (Reported) Metoprolol Tartrate 25 MG TABLET 1 TAB PO BID HEART/BP (Reported) [place]-3 Fatty Acids (Fish Oil Concentrate) (Unknown Strength) CAPSULE (Unknown Dose) PO DAILY SUPPLEMENT (Reported) Simvastatin (SIMVASTATIN*) 80 MG TABLET 1 TAB PO DAILY CHOLESTEROL (Reported) Ubidecarenone (Co Q-10) (Unknown Strength) CAPSULE (Unknown Dose) PO DAILY SUPPLEMENT (Reported) Triage Note: BIBA FROM HOME FOR INCREASING SOB. UPON ARRIVAL PT 89% ON 2L WITH LABORED BREATHING. O2 INCREASED TO 4 LITERS AND SATS NOW 93%. PT STATES SOB STARTED THIS AM. USED HER INHALERS WITH NO IMPROVEMENT. ALERT, COOPERATIVE. PALE, SKIN COOL AND DRY Triage Nurses Notes Reviewed? yes Onset: Abrupt Duration: hour(s): (1), day(s):, continues in ED, getting worse Timing: single episode today Severity: mild, moderate Activities at Onset: none Prior Episodes/Possible Cause: occasional episodes Associated Symptoms: cough, wheezing LMP (ages 10-50): post menopausal : No Patient currently breastfeeds: No HPI: 82-year-old female past medical history of COPD and diabetes presents complaining of shortness of breath. Patient states that she has shortness of breath at baseline and has been present for the past couple years. However earlier today she began to develop worsening shortness of breath. She states symptoms are present at rest. 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 She lives at home with her son. Cough is nonproductive. She reports shortness of breath and coughing present constantly. She denies any pain. She has been using her inhalers including albuterol without any improvement. No other associated symptoms. No chest pain, hemoptysis, lower extremity edema, fevers, back pain, abdominal pain, nausea, vomiting, sweats, chills or any other associated symptoms. (TAWANA PEREZ PA-C) Past History Travel History Traveled to [place] past 21 day No Medical History Any Pertinent Medical History? none Neurological: NONE EENT: cataracts Cardiovascular: hypertension Respiratory: emphysema, O2 DEP @ 2L Gastrointestinal: NONE Hepatic: NONE Renal: NONE Musculoskeletal: NONE Psychiatric: anxiety Endocrine: diabetes, hypothyroidism Blood Disorders: NONE Cancer(s): L BREAST CANCER HAND LACER/Reproductive: NONE History of MRSA: No History of VRE: No History of CDIFF: No Tetanus Vaccine: 04/06/13 Surgical History Surgical History: non-contributory Psychosocial History Who do you live with Spouse Services at Home None What is your primary language Romansh Tobacco Use: Quit >30 days ago ETOH Use: denies use Family History Hx Contributory? No (TAWANA PEREZ PA-C) Review of Systems Review of Systems Constitutional: Reports: no symptoms. EENTM: Reports: no symptoms. Respiratory: Reports: see HPI, cough, short of breath. Cardiovascular: Reports: no symptoms. GI: Reports: no symptoms. Genitourinary: Reports: no symptoms. Musculoskeletal: Reports: no symptoms. Skin: Reports: no symptoms. Neurological/Psychological: Reports: no symptoms. Hematologic/Endocrine: Reports: no symptoms. Immunologic/Allergic: Reports: no symptoms. All Other Systems: Reviewed and Negative (TAWANA PEREZ PA-C) Physical Exam Physical Exam Respiratory: chest non-tender, quiet respiration, decreased breath sounds, wheezing Comments: General: Hemodynamically stable. Afebrile. Well-developed well-nourished person in no acute distress. Head: Atraumatic, normocephalic Eyes: EOMI bilaterally, PERRLA, conjunctiva are not injected, no discharge, no nystagmus, fundus grossly normal bilaterally Nose: Atraumatic, no rhinorrhea, mucosa is not erythematous, no epistaxis. Sinuses are non-tender Ears: TM pearly norwood color bilaterally, external canal is clear, no discharge, hearing is normal Mouth: Appropriate dentition, no gingival bleeding, moist mucus membranes, no oral lesions, tonsils not erythematous or enlarged and free of exudate. Uvula rises midline. Neck: Supple, full active ROM, no lymphadenopathy, no midline tenderness to palpation, no thyromegaly, no tracheal deviation. Back: Non-tender, full active ROM, no scoliosis, no CVA tenderness Cardiovascular: regular rate and rhythm, no murmurs, rubs, or gallops. No JVD Abdomen: Soft, non-tender, non-distended, no organomegaly. No rebound tenderness or guarding. Normoactive bowel sounds. Extremities: No edema. No gross deformities. No joint swelling. No calf swelling or tenderness. Full active and passive ROM. Strength 5/5 in upper and lower extremities. Peripheral pulses 2+ bilaterally, Patellar DTR 2+ Neuro: No confusion. Motor and sensory function is intact. Appropriate gait. Cerebellar function intact. Skin: Warm and dry. Appropriate turgor. No lesions or bruising. No appreciable rash on exposed skin. Core Measures ACS in differential dx? Yes Severe Sepsis Present: No Septic Shock Present: No (TAWANA PEREZ PA-C) Progress Differential Diagnosis: asthma, AMI, bronchitis, CHF, COPD, pericarditis, pulmonary embolism, pneumonia, pneumothorax, unstable angina Plan of Care: Orders Procedure Date/time Status Regular Diet 06/08 D Active TROPONIN LEVEL 06/08 2000 Active EKG 06/08 2000 Active Patient Data 06/08 1843 Active OXYGEN SETUP (GEN) 06/08 174 Active Saline Lock 06/08 174 Active Admit to inpatient 06/08 174 Active Vital Signs 06/08 174 Active Activity/Ambulation 06/08 174 Active Code Status 06/08 174 Active URINALYSIS 06/08 1621 Complete TROPONIN LEVEL 06/08 1621 Complete D-DIMER 06/08 162 Complete COMPREHENSIVE METABOLIC PANEL 06/08 1621 Complete CBC WITHOUT DIFFERENTIAL 06/08 1621 Complete B-TYPE NATRIURETIC PEP (BNP) 06/08 1621 Complete EKG 06/08 1520 Active Laboratory Tests 06/08/17 1710: Urine Color YEL, Urine Clarity CLDY H, Urine pH 6.0, Ur Specific [place] 1.025, Urine Protein 30 H, Urine Ketones NEG, Urine Nitrite POS H, Urine Bilirubin NEG, Urine Urobilinogen 0.2, Ur Leukocyte Esterase LARGE H, Ur Microscopic SEDIMENT EXAMINED, Urine RBC 1-3, Urine WBC > 75 H, Ur Epithelial Cells MANY H , Urine Crystals RARE CA OX, Urine Bacteria MANY H, Urine Hemoglobin TRACE- LYSED, Urine Glucose NEG 06/08/17 1640: Anion Gap 13, Estimated GFR > 60, BUN/Creatinine Ratio 22.0, Glucose 121 H, Calcium 10.5 H, Total Bilirubin 0.5, AST 20, ALT 33, Alkaline Phosphatase 58, Troponin I 0.31 *H, Wst-B-Igzcthwxewh Pept 155 H, Total Protein 7.3, Albumin 4.6, Globulin 2.7, Albumin/Globulin Ratio 1.7, D-Dimer High Sensitivty 242, CBC w Diff NO MAN DIFF REQ, RBC 4.30, MCV 95.7, MCH 31.4 H, RDW 13.0, MPV 8.1, Gran % 81.7 H, Lymphocytes % 12.1 L, Monocytes % 4.3, Eosinophils % 1.6, Basophils % 0.3, Absolute Granulocytes 10.3 H, Absolute Lymphocytes 1.5, Absolute Monocytes 0.5, Absolute Eosinophils 0.2, Absolute Basophils 0, PUBS MCHC 32.8 L Patient seen and evaluated. She has diffusely diminished breath sounds and wheezing also stated bilaterally. She will have a chest x-ray basic blood work EKG. She was given a DuoNeb when she first arrived with improvement. Patient has an elevated troponin of 0.3. Spoke with Dr. Engel. He feels that this is likely demand ischemia related to COPD. She has a normal BNP and no signs of overload on chest x-ray. No peripheral edema. Patient will be given 325 of aspirin. She'll be admitted to hospitalist service for COPD exacerbation and rule out acute coronary syndrome. If troponin comes back elevated at the 4 hour faye patient will need to be treated aggressively for acute coronary syndrome with IV heparin and heparin bolus. Hospitalist paged. Spoke with Dr. Daley patient will be admitted to telemetry to rule out acute coronary syndrome and for COPD exacerbation. (TAWANA PEREZ PA-C) Initial ED EKG: sinus rhythm borderline r wave progression anterio leads (TAWANA PEREZ PA-C) Departure Departure Disposition: STILL A PATIENT Condition: Stable Clinical Impression Primary Impression: Dyspnea Qualifiers: Dyspnea type: unspecified Qualified Code: R06.00 - Dyspnea, unspecified Referrals: LANA HERNÁNDEZ MD (PCP/Family) Departure Forms: Customer Survey General Discharge Information Admission Note Spoke With: RONALD MCDONALD MD Documentation of Exam: Documentation of any treatments & extenuating circumstances including Concerns Regarding Discharge (functional status, medication knowledge or non-compliance, living conditions, etc.) that warrant an admission rather than observation: [ Cardiology consult, pulmonology consult, telemetry monitoring, serial labs, monitoring of vital signs, DuoNeb, IV steroids] (TAWANA PEREZ PA-C) PA/ELECTROENCEPHALOGRAPH TECHNICIAN Co-Sign Statement Statement: ED Attending supervision documentation- x I saw and evaluated the patient. I have also reviewed all the pertinent lab results and diagnostic results. I agree with the findings and the plan of care as documented in the PA's/ELECTROENCEPHALOGRAPH TECHNICIAN's documentation. [] I have reviewed the ED Record and agree with the PA's/ELECTROENCEPHALOGRAPH TECHNICIAN's documentation. [] Additions or exceptions (if any) to the PAs/ELECTROENCEPHALOGRAPH TECHNICIAN's note and plan are summarized below: [] (KISHAN CHIN,LARRY) Critical Care Note Critical Care Note Critical Care Time: non-applicable (ANA SHEPPARD,TAWANA)
--- NOTE | 2017-06-08 16:31 | NUR ---
SEEN BY WILLY PEREZ
--- NOTE | 2017-06-08 16:46 | NUR ---
LABS SENT (BLUE,SST,LAV,BACON)
[2017-06-08 16:53] LABS: ABSOLUTE BASOPHIL COUNT 0 /CUMM (0.0-0.2); ABSOLUTE EOSINOPHIL COUNT 0.2 /CUMM (0.0-0.7); ABSOLUTE GRANULOCYTE CT 10.3 /CUMM (1.4-6.5); ABSOLUTE LYMPH COUNT 1.5 /CUMM (1.2-3.4); ABSOLUTE MONOCYTE COUNT 0.5 /CUMM (0.10-0.60); BASOPHIL % 0.3 % (0.0-2.0); EOSINOPHIL % 1.6 % (0-5); GRANULOCYTE % 81.7 % (42.2-75.2); HEMATOCRIT 41.1 % (37-47); MEAN CORPUSCULAR HGB 31.4 PG (27.0-31.0); MEAN CORPUSCULAR HGB CONC 32.8 G/DL (33.0-37.0); MEAN CORPUSCULAR VOLUME 95.7 FL (81.0-99.0); MEAN PLATELET VOLUME 8.1 FL (7.4-10.4); PLATELET COUNT 245 /CUMM (130-400); WHITE BLOOD CELL COUNT 12.6 /CUMM (4.8-10.8)
--- NOTE | 2017-06-08 17:01 | RADIOLOGY REPORT ---
EXAMINATION: XR PORTABLE CHEST CLINICAL INFORMATION: Shortness of breath, wheezing, cough COMPARISON: [facility], most recently 03/31/2017 TECHNIQUE: Portable frontal view of the chest was obtained. FINDINGS: Cardiac leads overlie the chest. The lungs are well expanded. Known emphysema. There is no consolidation, edema, or effusion. No pneumothorax. The cardiomediastinal silhouette is unchanged, with a calcified aorta. No acute osseous abnormality. Degenerative changes at the left shoulder noted. IMPRESSION: Emphysema. No acute pulmonary findings.
--- NOTE | 2017-06-08 17:16 | NUR ---
PT TO BEDSIDE COMMODE URINE TRIO SENT
--- NOTE | 2017-06-08 17:23 | NUR ---
CRITICAL TEST RESULTS [id number] BENNIE KOLB 82 F TESTS AND RESULTS: TROPONIN 0.31 Results received and read back by: NIURKA ESPINAL Results received date and time: 06/08/17 1723 The following provider was notified of the results, and read the results back: TAWANA PEREZ Notified date and time: 06/08/17 at 1723
--- NOTE | 2017-06-08 17:53 | NUR ---
MEDICATED WITH ASPIRIN DUE TO ELEVATED TROPONIN. RT PAGED TO GIVE SECOND NEB TX.
--- NOTE | 2017-06-08 19:32 | NUR ---
HOUSE STAFF IN TO SEE PT
--- NOTE | 2017-06-08 19:33 | NUR ---
PT'S RM ASSIGNMENT 179 BED 1
--- NOTE | 2017-06-08 19:58 | NUR ---
PT ASSISTED ON BEDPAN
--- NOTE | 2017-06-08 20:06 | NUR ---
REPEAT EKG DONE
--- NOTE | 2017-06-08 20:19 | NUR ---
REPEAT TROPONINS DRAWN. PT PUT ON BEDPAN TO VOID
--- NOTE | 2017-06-08 20:47 | NUR ---
PT ON 2L NC O2 --WAS LOWERED TO 2 LITERS AFTER SECOND NEB TX. REPORT CALLED TO RENARD ON TELE UNIT
--- NOTE | 2017-06-08 21:10 | History & Physical ---
[facility] 06/08/172100: General Information and HPI MD Statement: I have seen and personally examined BENNIE KOLB and documented this H&P. The patient is a 82 year old F who presented with a patient stated chief complaint of [with worsening of dyspnea, cough with greenish sputum since this afternoon.]. Source of Information: patient Exam Limitations: no limitations History of Present Illness: 82 YO F former smoker(1pack/day, quit 30 years back) with PMH of CAD s/p stent placement, COPD on 2 L of O2 at home, DM on metformin, HTN, hypothyroidism, left breast CA s/p mastectomy and arthritis of right hip was brought to ED with CC of worsening of dyspnea and cough with greenish sputum since this afternoon. Patient reported that she is always having dyspnea and cough sometimes and using 2 L of O2 but this afternoon it worsened. It's also associated with cough with greenish sputum, no blood or foul smell in the sputum. She repoted that she always stays in the bed due to bad right hip arthritis and walk with walker once or twice a day. She denied chest pain, sweating, palpitation, fever, chills, nausea, vomiting, abdominal pain, numbness, weakness, ill contact and dysuria. On admission; EKG was done that showed ST segement and Twave changes. She was given aspirin and nebulized with atrovent, albuterol for COPD exacerbation and 2L OF o2 Chest xray:Emphysema. No acute pulmonary findings. Labs: TROP 0.31,1.51, 2.08, Hb 13.5 , WBC 12.6 , Cr.0.5 BUN 11 , BNP 155 , D-dimers 242, Ca 10.5 albumin 4.6, glucose 121, Examination: Alert, cooperative, oriented x 3 left leg edema, HEENT: PERRLA, EOMI, neck atraumatic CVS: s1+s2 +0 , R/R/R ABD: soft , NBS, non tender CHEST; Decreased air entery B/L, WHEEZING STUCCO APPLICATOR: Power: 5/5 x B/L x 4 , sensation inatct, CN 3-12 intact Allergies/Medications Allergies: Coded Allergies: azithromycin (Mild, INTESTINAL BLEEDING 04/09/16) Home Med list Aclidinium Lipan (Tudorza Pressair) 400 MCG/ACTUATION AER.POW.BA 2 PUFF INH DAILY RESPIRATORY (Reported) Albuterol Sulfate (Proair Hfa) 90 MCG HFA.AER.AD 2 PUF INH Q4H PRN RESPIRATORY (Reported) Alprazolam 0.25 MG TABLET 1 TAB PO AD ANXIETY (Reported) Amitriptyline HCl 50 MG TABLET 50 MG PO AT BEDTIME insomnia Aspirin (Aspirin*) 325 MG TABLET 325 MG PO DAILY heart health Bioflav,Lemon/Vit Bcomp,C (Lipo-Flavonoid Plus Caplet) 200 MG-100 MG TABLET 2 CAP PO DAILY SUPPLEMENT (Reported) Budesonide/Formoterol Fumarate (Symbicort 160-4.5 Mcg Inhaler) 160 MCG-4.5 MCG/ ACTUATION HFA.AER.AD 2 PUF INH DAILY RESPIRATORY (Reported) Cefuroxime Axetil (Cefuroxime) 250 MG TABLET 250 MG PO Q12 uti Cholecalciferol (Vitamin D3) (Vitamin D3) 2,000 UNIT TABLET 1 TAB PO DAILY SUPPLEMENT (Reported) Cyanocobalamin (Vitamin B-12) (B-12 Dots) 500 MCG TABLET 2 TAB PO DAILY SUPPLEMENT (Reported) Ferrous Sulfate 325 MG (65 MG IRON) TABLET 1 TAB PO DAILY SUPPLEMENT ( Reported) Folic Acid 1 MG TABLET 1 TAB PO DAILY SUPPLEMENT (Reported) Levothyroxine Sodium (Levoxyl) 88 MCG TABLET 1 TAB PO DAILY THYROID (Reported ) Lisinopril 5 MG TABLET 1 TAB PO DAILY HEART/BP (Reported) Metformin HCl 500 MG TABLET 1 TAB PO DAILY DM (Reported) Metoprolol Tartrate 25 MG TABLET 1 TAB PO BID HEART/BP (Reported) [place]-3 Fatty Acids (Fish Oil Concentrate) (Unknown Strength) CAPSULE (Unknown Dose) PO DAILY SUPPLEMENT (Reported) Simvastatin (SIMVASTATIN*) 80 MG TABLET 1 TAB PO DAILY CHOLESTEROL (Reported) Ubidecarenone (Co Q-10) (Unknown Strength) CAPSULE (Unknown Dose) PO DAILY SUPPLEMENT (Reported) Past History Travel History Traveled to [place] past 21 day No Medical History Neurological: NONE EENT: cataracts Cardiovascular: hypertension Respiratory: emphysema, O2 DEP @ 2L Gastrointestinal: NONE Hepatic: NONE Renal: NONE Musculoskeletal: NONE Psychiatric: anxiety Endocrine: diabetes, hypothyroidism Blood Disorders: NONE Cancer(s): L [employer] [facility] [employer]ER/Reproductive: NONE History of MRSA: No History of VRE: No History of CDIFF: No Tetanus Vaccine: 04/06/13 Surgical History Surgical History: non-contributory Past Family/Social History Psychosocial History Services at Home: None ETOH Use: denies use Review of Systems Review of Systems Constitutional: Reports: no symptoms. EENTM: Reports: no symptoms. Cardiovascular: Reports: peripheral edema. Respiratory: Reports: cough, short of breath, sputum production. GI: Reports: no symptoms. Exam & Diagnostic Data Last 24 Hrs of Vital Signs/I&O Vital Signs Date Time Temp Pulse Resp B/P B/P Pulse O2 O2 Flow FiO2 Mean Ox Delivery Rate 06/08 2046 97.0 99 20 149/72 93 Nasal 2.0L Cannula 06/08 1810 97.8 95 24 142/72 95 Nasal 2.0L Cannula 06/08 1755 97 Nasal 4.0L Cannula 06/08 1546 Nasal 4.0L Cannula 06/08 1538 Nasal 4.0L Cannula 06/08 1538 99 24 177/86 93 Nasal 4.0L Cannula Intake & Output 06/08 1600 06/08 0800 06/08 0000 Intake Total Output Total Balance Patient 145 lb Weight Weight Reported by Patient Measurement Method Physical Exam General Appearance Alert, Oriented X3, Cooperative, No Acute Distress Skin No Rashes Skin Temp/Moisture Exam: Warm/Dry HEENT Atraumatic, PERRLA, EOMI Neck Supple Cardiovascular Regular Rate, Normal S1, Normal S2 Lungs Clear to Auscultation Abdomen Normal Bowel Sounds, Soft, No Tenderness Neurological Normal Speech, Normal Tone, Sensation Intact, Cranial Nerves 3-12 NL Extremities Left leg edema Assessment/Plan Assessment: 82 YO F former smoker(1pack/day, quit 30 years back) with PMH of CAD s/p stent placement, COPD on 2 L of O2 at home, DM on metformin, HTN, hypothyroidism, left breast CA s/p mastectomy and arthritis of right hip was brought to ED with CC of worsening of dyspnea and cough with greenish sputum since this afternoon. In ED patient was assessed for: COPD EXACERBATION ACS CHF PE PNEUMONIA Patient is admitted to telemetry to follow for: ACS/STEMI serial trop and EKG heparin IV (GUAIAC test is -ve) cardio consult Echo/cardiac cath lipid panel heart healthy diet Continue aspirin, metoprolol continue atorvastatin COPD EXACERBATION/PNUMONIA: Continue O2 to maintain O2 sat >92% Nebulize with atrovent AND albuterol sputum culture strep antigen and legionella antigen ceftriaxone PE: D-dimer 242 Leg doppler study to rule out clot HYpothyroidism: continue levothyroxin DM; stop metformin start insulin accu checks HbA1c Diabetic diet DVT prophylaxis: mechanical and heparin CODE STATUS: full code Core Measures/Miscellaneous Acute Coronary Syndrome ACS Diagnosis: No Cerebrovascular Accident CVA/TIA Diagnosis: No Congestive Heart Failure CHF Diagnosis: No VTE (View Protocol) VTE Risk Factors: Age > 40, Immobility, paresis No Mech VTE prophylaxis d/t: No contraindications No VTE Pharm Prophylaxis d/t: No contraindications VTE Diagnosis: No VTE Type: NONE VTE Confirmed by (Test): NONE Sepsis (View Protocol) Severe Sepsis Present: No Septic Shock Septic Shock Present: No Miscellaneous Documentation Attending Case Discussed With: RONALD MCDONALD MD Primary Care Physician: LANA HERNÁNDEZ MD Patient sees these Specialists Dr engel Level of Patient Care: Telemetry BRITTON COLEY 06/08/17 2226: Assessment/Plan As Ranked By This Provider Problem List: 1. COPD Resident Review Statement Resident Statement: examined this patient, discussed with process engineering intern, agreed with process engineering intern, amended to note Other Findings: 82-year-old lady with past medical history of COPD on 2 Loxygen, left sided breast cancer status post resection, CAD status post stent on aspirin, diabetes, hypertension, hip arthritis, anxiety depression came to the hospital with chief complaint of shortness of breath. Patient is mostly sedentary due to right-sided severe hip arthritis and does walk very minimally. She reported a two-day in the afternoon she was having more shortness of breath and episode of coughing which is worse than before. Patient has baseline shortness of breath and coughing episodes with green sputum. Upon arrival to ED his O2 saturation dropped with 7% on 2 L which improved to 93% on 4 L. Patient denies any chest pain, nausea, vomiting, abdominal pain, diarrhea, sweating, palpitation, headache, dizziness, sick contact, fevers, chills recently. Information was obtained from the patient and the family members as well. The reported the patient is sometimes not compliant with breathing through her nose and have anxiety attacks as well. Vital signs on admission were notable for hypoxemia which improved with 4 L, blood pressure within normal limits, mild tachycardia,afebrile On exam patient is alert and oriented with oxygen tube HEENT Atraumatic, PERRLA, EOMI Neck Supple, Cardiovascular Regular Rate, Normal S1, Normal S2 Lungs decreased breath sounds and prolonged expiration,bilateral wheezing Abdomen Normal Bowel Sounds, Soft, No Tenderness, No Hepatospenomegaly, No Masses Neurological Normal Speech, Strength at 5/5 X4 Ext Extremities no edema on the right ankle, +1 edema in the ankle up to 1/3 rodrigez Labs per notable troponin 0.31, BNP 155, calcium 10.5, creatinine 0.05, d-dimer 242, sodium 134, CL 94, WC 13.4,PLT 245,Urine showed large leukocyte esterase with WBC 75,bacteria many CXR: Emphysema. No acute pulmonary findings. first EKG showed heart rate 99, crit is 46, mildly poor R wave progression Second EKG showed flattening T waves in V4 V5 V6 Patient received 325 aspirin in the ED, with 2 sessions of nebulizer treatment Assessment and plan #Shortness of breath: COPD exacerbation versus NSTEMI versus demand ischemia -Admit to telemetry, EKG and troponin 3, start IV heparin with bolus, echocardiogram in the morning, cardiology consult with Dr. Engel in the morning( he is already aware about the elevated troponin (1.5) and EKG changes), continue aspirin and metoprolol and statin -[facility] nebs, consultation with Dr. SOSA in the morning, but the patient on IV Solu-Medrol 40 mg every 6, but the patient on IV ceftriaxone, check urine Legionella/strep/sputum culture, keep O2 saturation over 92% #History of diabetes, hypothyroidism, anxiety depression, CAD, Hypertension -Continue levothyroxine, amitriptyline, Xanax when necessary, continue aspirin and statin and metoprolol, continue lisinopril -Hold metformin, sliding scale insulin, diabetic diet, fingersticks #legswelling -Check Doppler ultrasound of the bilateral lower extremity DVT prophylaxis is Alps And IV heparin, Tylenol for pain, diabetic diet, full code RONALD MCDONALD 06/09/17 0448: Attending MD Review Statement Attending Statement Attending MD Statement: examined this patient, discuss w/resident/PA/INTERIOR PAINTER, agreed w/resident/PA/INTERIOR PAINTER, discussed with family, reviewed images, amended to note Attending Assessment/Plan: CC : Acute worsening of shortness of breath PMH: CAD S/P stent, CA breast S/P mastectomy left side, COPD on 2 L nasal cannula at home, hypothyroidism, DM, HTN, HLD Patient came to ER for progressive worsening of shortness of breath since last 2 days with mild worsening of cough. Patient states that she has long-standing COPD, has chronic productive cough with yellow colored sputum production but since yesterday she has been using her albuterol more than usual. Her shortness of breath persisted today and was not getting any better so she came to ER. Patient is not much ambulating because of her arthritis pain. She felt a little better after nebulization treatments in ER but not completely to her baseline. She denies any fever, chills, worsening of leg swelling, abdominal pain, nausea, vomiting, presyncopal symptoms or urinary symptoms. Vitals: T max 97.8, HR 90s, RR 24, blood pressure 177/86 upon arrival improved to 142/72, requiring 4 L by nasal cannula to saturate at 93% at arrival. On exam: A O 3, cooperative, mild respiratory distress, neck supple, JVD normal , no lymphadenopathy, mucosa dry, no focal neurological deficit, no obvious skin rashes or inflammation, legs are symmetrical left to be content right, no pitting edema . CVS: S1-S2, RRR. RS: Diffuse wheezing with prolonged expiratory phase. Abdomen: Soft, NT, ND, bowel sounds present. Peripheral pulses perfusion normal Labs: WBC 12.2, neutrophils 81% otherwise CBC unremarkable, sodium 134, potassium 4.4, chloride 94, bicarbonate 27, BUN 11, creatinine 0.5, glucose 121, calcium 10.5, anion gap 13, LFT unremarkable, troponin 0.31, proBNP 155, albumin 4.6, d-dimer 242 UA positive for nitrites, large leukocyte esterase CXR: Emphysema no acute pulmonary findings EKG: Flattening of T waves A and P 82-year-old female with past medical history significant for CAD and COPD presented in ER with acute worsening of shortness of breath and since last 2 days, She is requiring higher oxygen than her baseline, mild respiratory distress, prolonged expiration with wheezing, no obvious leg edema but ex are symmetrical left because than the right. Most likely COPD exacerbation, d-dimer negative, but DVT Doppler should be obtain to exclude any DVTs. At the same time Patient has elevated troponin, and flattening of T waves. ProBNP 155. NSTEMI, patient is not that significantly hypoxic for this being demand. Blood pressure is stable. +Acute on Chronic hypoxic respiratory failure secondary to COPD exacerbation + NSTEMI + History of CA breast S/P mastectomy left side, hypothyroidism, DM, HTN, HLD - Admit to telemetry - Continuous telemetry monitoring - Serial EKG and troponin - Start heparin drip - Continue aspirin and statin - Cardiology consult in a.m. - Continue O2 by nasal cannula gradually wean off to baseline - Albuterol and Atrovent nebulization scheduled and when necessary - IV methylprednisolone 40 mg every 8 hours - Mucinex 600 mg by mouth twice a day - IV ceftriaxone 1 g daily - Pulmonology consult in a.m. - 2-D echo in a.m. - DVT Doppler bilateral lower extremity - Continue her home medications except metformin and change to sliding scale insulin - Adequate pain control - Previous history of pulmonary nodule, repeat CT negative, calcium mildly elevated, extensive COPD : Obtain CT chest without contrast
[2017-06-08 21:25] VITALS: BP 134/82
[2017-06-09 04:00] VITALS: BP 86/50
--- NOTE | 2017-06-09 04:49 | Admission Certification ---
Admission Certification Certification Statement - As attending physician, I certify that at the time of - admission, based on clinical presentation, severity of - symptoms, need for further diagnostic testing and - therapeutic interventions, and risk of adverse outcomes - without in-hospital treatment, in my clinical assessment, - this patient requires an acute hospital stay for a minimum - of two nights or longer. I have also considered psychsocial - factors such as support system, advanced age, financial - issues, cognitive issues, and failed out-patient treatments, - past re-admission history, safety of patient, and lack of - compliance as applicable. Specific rationale supporting this admission is: NSTEMI COPD exacerbation
[2017-06-09 04:59] VITALS: BP 90/60
[2017-06-09 07:04] VITALS: BP 132/84
[2017-06-09 08:18] LABS: ABSOLUTE BASOPHIL COUNT 0 /CUMM (0.0-0.2); ABSOLUTE EOSINOPHIL COUNT 0.1 /CUMM (0.0-0.7); ABSOLUTE GRANULOCYTE CT 8.2 /CUMM (1.4-6.5); ABSOLUTE LYMPH COUNT 1.9 /CUMM (1.2-3.4); ABSOLUTE MONOCYTE COUNT 0.4 /CUMM (0.10-0.60); BASOPHIL % 0.4 % (0.0-2.0); EOSINOPHIL % 1.4 % (0-5); GRANULOCYTE % 76.5 % (42.2-75.2); HEMATOCRIT 37.1 % (37-47); MEAN CORPUSCULAR HGB 31.7 PG (27.0-31.0); MEAN CORPUSCULAR HGB CONC 33.2 G/DL (33.0-37.0); MEAN CORPUSCULAR VOLUME 95.3 FL (81.0-99.0); MEAN PLATELET VOLUME 8.4 FL (7.4-10.4); PLATELET COUNT 231 /CUMM (130-400); RED BLOOD CELL CT 3.89 /CUMM (4.20-5.40); WHITE BLOOD CELL COUNT 10.7 /CUMM (4.8-10.8)
[2017-06-09 08:51] LABS: PTT > 120 SEC (25-37)
--- NOTE | 2017-06-09 09:19 | PN- Housestaff ---
AKUA PRIDE 06/09/17 0919: Subjective Follow-up For: STEMI COPD exacerbation Subjective: Patient has no complaints overnight. Review of Systems Constitutional: Reports: see HPI. Objective Last 24 Hrs of Vital Signs/I&O Vital Signs Date Time Temp Pulse Resp B/P B/P Pulse O2 O2 Flow FiO2 Mean Ox Delivery Rate 06/09 1138 Nasal 2.0L Cannula 06/09 1054 102/64 06/09 1054 102/64 06/09 0800 94 Nasal 2.0L Cannula 06/09 0704 98.4 84 18 132/84 92 Nasal Cannula 06/09 0459 86 20 90/60 95 Nasal 2.0L Cannula 06/09 0442 94 Nasal 2.0L Cannula 06/09 0400 97.1 90 28 86/50 94 Nasal 2.0L Cannula 06/09 0000 94 Nasal 2.0L Cannula 06/08 2218 120 130/84 06/08 2200 94 Nasal 2.0L Cannula 06/08 2125 97.7 100 18 134/82 94 06/08 2046 97.0 99 20 149/72 93 Nasal 2.0L Cannula 06/08 1810 97.8 95 24 142/72 95 Nasal 2.0L Cannula 06/08 1755 97 Nasal 4.0L Cannula 06/08 1546 Nasal 4.0L Cannula 06/08 1538 Nasal 4.0L Cannula 06/08 1538 99 24 177/86 93 Nasal 4.0L Cannula Intake & Output 06/09 1600 06/09 0800 06/09 0000 Intake Total 576.4 200 Output Total 400 200 Balance 176.4 0 Intake, IV 376.4 Intake, Oral 200 200 Output, Urine 400 200 Patient 145 lb Weight Physical Exam General Appearance: Alert, Oriented X3, Cooperative, No Acute Distress HEENT: Atraumatic, PERRLA Neck: Supple, No JVD Cardiovascular: Regular Rate, Normal S1, Normal S2, No Murmurs Lungs: Clear to Auscultation, Decreased breath sounds Abdomen: Normal Bowel Sounds, Soft, No Tenderness Extremities: No Cyanosis, No Edema, No Tenderness/Swelling Current Medications: Current Medications Sig/Amari Start time Last Medication Dose Route Stop Time Status Admin Acetaminophen 650 MG Q6 06/08 2359 AC PO Albuterol Sulfate 3 ML ONCE ONE 06/08 1745 DC 06/08 INH 06/08 1746 1755 Albuterol Sulfate 3 ML ONCE ONE 06/08 1545 DC 06/08 INH 06/08 1546 1537 Alprazolam 0.25 MG DAILY PRN 06/08 2230 AC 06/09 PO 06/15 222 0333 Alprazolam 0.25 MG ONCE ONE 06/08 2215 DC 06/08 PO 06/08 221 2217 Amitriptyline HCl 150 MG AT BEDTIME 06/08 2200 AC 06/08 PO 2231 Aspirin 81 MG DAILY 06/09 1000 AC 06/09 PO 1054 Aspirin 0 .STK-MED ONE 06/08 1756 DC PO Aspirin 325 MG ONCE ONE 06/08 1745 DC 06/08 PO 06/08 1746 1753 Atorvastatin Calcium 80 MG 1700 06/09 1700 AC PO Budesonide/ 2 PUF 2200 06/09 2200 AC 06/08 Formoterol Fumarate INH 2232 Budesonide/ 2 PUF DAILY 06/09 1000 DC Formoterol Fumarate INH Ceftriaxone Sodium 1,000 MG 0000 06/10 0000 AC IV Ceftriaxone Sodium 1,000 MG DAILY 06/08 2300 DC 06/09 IV 0002 Cholecalciferol 1,000 IU DAILY 06/09 1000 AC PO Clopidogrel Bisulfate 300 MG ONCE ONE 06/09 0115 DC 06/09 PO 06/09 0116 0250 Cyanocobalamin 1,000 MCG DAILY 06/09 1000 AC PO Dextrose/Sodium 1,000 ML Q13H 06/09 0630 AC 06/09 Chloride IV 06/09 1929 0812 Ferrous Sulfate 325 MG DAILY 06/09 1000 AC PO Folic Acid 1 MG DAILY 06/09 1000 AC PO Guaifenesin 600 MG Q12 06/09 1000 AC PO Heparin Sodium 5,000 UNIT Q8 06/09 0600 CAN (Porcine) SC Heparin Sodium 25,000 UNIT Q24H 06/08 2230 AC 06/08 (Porcine) IV 2345 Sodium Chloride 500 ML Heparin Sodium 3,900 UNIT ONCE ONE 06/08 2230 DC 06/08 (Porcine) IV 06/08 223 234 Ipratropium [place] 2.5 ML ONCE ONE 06/08 1745 DC 06/08 INH 06/08 1746 1755 Ipratropium [place] 2.5 ML ONCE ONE 06/08 1545 DC 06/08 INH 06/08 1546 1537 Levothyroxine Sodium 0.088 MG DAILY AC 06/09 0700 AC 06/09 PO 0609 Lisinopril 5 MG DAILY 06/09 1000 AC 06/09 PO 1054 Lorazepam 1 MG ONCE ONE 06/09 0400 DC IV 06/09 0401 Metoprolol Tartrate 25 MG BID 06/08 2200 AC 06/09 PO 1054 Sodium Chloride 1,000 ML Q13H 06/09 0630 CAN IV 06/09 1929 Sodium Chloride 250 ML BOLUS ONE 06/09 0415 DC 06/09 IV 06/09 0514 0430 Tiotropium [place] 1 PUF DAILY 06/09 1000 AC 06/09 INH 1054 Last 24 Hrs of Lab/Sae Results Last 24 Hrs of Labs/Mics: Laboratory Tests 06/09/17 1318: Lactic Acid Pending 06/09/17725: Anion Gap 9, Estimated GFR > 60, BUN/Creatinine Ratio 21.7, Troponin I 1.28 *H, APTT > 120 *H, CBC w Diff NO MAN DIFF REQ, RBC 3.89 L, MCV 95.3, MCH 31.7 H, RDW 13.0, MPV 8.4, Gran % 76.5 H, Lymphocytes % 17.8 L, Monocytes % 3.9, Eosinophils % 1.4, Basophils % 0.4, Absolute Granulocytes 8.2 H, Absolute Lymphocytes 1.9, Absolute Monocytes 0.4, Absolute Eosinophils 0.1, Absolute Basophils 0, PUBS MCHC 33.2 06/09/17 0435: pH 7.39, pCO2 43, pO2 80, HCO3 26, ABG O2 Sat (Measured) 95.0 L, P-50 (Temp Corrected) Y, Carboxyhemoglobin 0.5 L, O2 Concentration % 2 LPM, Temperature 98.7, O2 Delivery Method N/C, Phlebotomy Draw Site RIGHT RADIAL 06/09/17 0300: Troponin I Cancelled 06/09/17 0115: Troponin I 2.08 *H 06/08/17 2108: Troponin I 1.51 *H 06/08/17 1710: Urine Color YEL, Urine Clarity CLDY H, Urine pH 6.0, Ur Specific [place] 1.025, Urine Protein 30 H, Urine Ketones NEG, Urine Nitrite POS H, Urine Bilirubin NEG, Urine Urobilinogen 0.2, Ur Leukocyte Esterase LARGE H, Ur Microscopic SEDIMENT EXAMINED, Urine RBC 1-3, Urine WBC > 75 H, Ur Epithelial Cells MANY H , Urine Crystals RARE [place] OX, Urine Bacteria MANY H, Urine Hemoglobin TRACE- LYSED, Urine Glucose NEG 06/08/17 1640: Anion Gap 13, Estimated GFR > 60, BUN/Creatinine Ratio 22.0, Glucose 121 H, Calcium 10.5 H, Total Bilirubin 0.5, AST 20, ALT 33, Alkaline Phosphatase 58, Troponin I 0.31 *H, Plm-R-Lkjgnztesgt Pept 155 H, Total Protein 7.3, Albumin 4.6, Globulin 2.7, Albumin/Globulin Ratio 1.7, 25-OH Vitamin D Total 35.5, PTH Intact 52.8, D-Dimer High Sensitivty 242, CBC w Diff NO MAN DIFF REQ, RBC 4.30, MCV 95.7, MCH 31.4 H, RDW 13.0, MPV 8.1, Gran % 81.7 H, Lymphocytes % 12.1 L, Monocytes % 4.3, Eosinophils % 1.6, Basophils % 0.3, Absolute Granulocytes 10.3 H, Absolute Lymphocytes 1.5, Absolute Monocytes 0.5, Absolute Eosinophils 0.2, Absolute Basophils 0, PUBS MCHC 32.8 L Microbiology 06/09 034 URINE ROUT: Legionella Antigen - COMP 06/09 340 URINE ROUT: Streptococcus pneumoniae Antigen (M - COMP 06/08 2224 LOWER RESP: Respiratory Culture - CAN Cancelled: SPECIMEN NOT RECEIVED IN LABORATORY 06/08 2224 LOWER RESP: Gram Stain - CAN Cancelled: SPECIMEN NOT RECEIVED IN LABORATORY Orders Radiology Findings: 06/09/17-0700 CT CHEST WO IV CONTRAST IMPRESSION: 1. Severe emphysema. 2. No focal pneumonia or mass. 3. Stable benign-appearing branching calcification in the right middle lobe, possibly concretions within a distal small airway versus small granulomas. 4. No adenopathy. 5. Moderate coronary artery calcifications. 6. Status post left breast mastectomy and left axillary lymph node resection. Of note, the patient's last mammogram in our system was performed 07/26/2013. If the patient has not had outside imaging of her remaining right breast, recommend screening mammogram of the right breast. Assessment/Plan Assessment: A: Ms. Murray is an 82 yo F with a PMH significant for CAD s/p stent placement for a anterior wall CO on asa 81mg, COPD on 2L oxygen [place], DM on metformin, HTN on metoprolol 25mg and simvastatin 80mg, hypothroidism on levothyroxine, L breast CA s/p mastectomy, and arthritis. Presented to the ED with SOB and cough with green sputum production. She noticed that she required her albuterol inhaler more often at the time. She denied any chest pain, nausea, vomiting, abdominal pain, diarrhea, sweating, palpitation or dizziness. P: 1. [place] NSTEMI In 2009, she was found to have anterior ST elevations in V1-V5 with Q waves in V1-V3, as well as reciprocal changes consistent with a subacute anterior CO.An emergent cardiac catheterization disclosed a 95% proximal stenosis of the LAD and 70% ostial stenosis. A stent was placed on her LAD. Her EF was 30% with severe anterior wall hypokinesis. Her post cath echo showed some improvement with an EF of 40%. ECHO in February 2010 showed EF 60%. On admission her trops were elevated (0.31, 1.51, 2.08), ECG-nonspecific ST/T wave changes, LE doppler ruled out DVT. * Cardio consulted-Dr. Engel * Possible cardiac cath when she improves * ECHO ordered * Continue IV Heparin, full dose ASA, atorvastatin 80mg, metoprolol 25mg, lisinopril 5mg * NTG if she has CP 2. COPD exacerbation She is a former smoker, quit 30 years ago previously smoked 1ppd, hx of emphysema. She requires 2L of oxygen [place] at home. On admission she reported cough with sputum production and required her albuterol inhaler more excessively. * CXR showed emphysema, no acute findings * ABG 7.39/43/26 * Continue TRC * Continue IV ceftriaxone 3. Possible UTI (pos nitrites, esterase, epithelial cells) * Renal US ordered for possible urinary retention * IVF 4. Elevated trop - trending down, elevation most likely due to demand ischemia 5. Hypothyroidism * Continue home meds * TSH/T4 ordered 6. History of L breast CA s/p L breast mastectomy Last mammogram in our system was performed 07/26/2013 Diet-Regular Code-Full Problem List: 1. COPD 2. Diabetes mellitus 3. Hypothyroidism Pain Ratin Pain Location: N/A Pain Goal: Remain pain free Pain Plan: N/A Tomorrow's Labs & Rationales: BEP for hyponatremia TSH/T4 - monitor hypothroidism MARISSA GARCIA 06/09/17 1042: Attending MD Review Statement Attending Statement Attending MD Statement: examined this patient, discuss w/resident/PA/QUALITY SYSTEM MANAGER, agreed w/resident/PA/QUALITY SYSTEM MANAGER, discussed with family, reviewed EMR data (avail), discussed with nursing, discussed with case mgmt, reviewed images, amended to note Attending Assessment/Plan: 82 o/f with PMH: CAD S/P stent, CA breast S/P mastectomy left side, COPD on 2 L nasal cannula at home, hypothyroidism, DM, HTN, HLD comes with worsening shortness of breath. ASSESSMENT 1. Acute on chronic respiratory failure 2. Sepsis 2/2 UTI 3. COPD with brocnhitis 4. NSTEMI 2/2 demand ischemia 5. Hypothryoidism 6. Ca breast s/p mastectomy 7. DM 8. HTN 9. Hyperlipidemia PLAN admit to telemetry monitoring, serial cardiac enzymes. Cardiology consulted and recommend anticaogulation , antiplatelet therapy, statin, b milind. plan for cath as per cardio. Pulm consulted, oxygen supplementation. check LA. f/u CT chest no pneumonia/ adneopathy. follow cultures and taper abx as per c/s reports RISS and titrate insulin as needed. GI/DVT propyalxis
--- NOTE | 2017-06-09 10:29 | ULTRASOUND REPORT ---
EXAMINATION: BILATERAL LOWER EXTREMITY VENOUS ULTRASOUND CLINICAL INFORMATION: Shortness of breath. Leg swelling. Evaluate for DVT. COMPARISON: None TECHNIQUE: Doppler spectral analysis and color flow Doppler imaging was performed of the lower extremities. Compression and augmentation maneuvers were performed. FINDINGS: The right and left common femoral vein, greater saphenous vein takeoff, femoral vein, and popliteal vein are normally compressible with normal augmentation responses and phasic changes seen with Doppler imaging. The midcalf peroneal and posterior tibial veins are patent as well. No popliteal cyst is seen. IMPRESSION: No evidence of deep venous thrombosis in the right or left lower extremity.
--- NOTE | 2017-06-09 11:03 | CT SCAN REPORT ---
EXAMINATION: CT CHEST WITHOUT CONTRAST CLINICAL INFORMATION: Shortness of breath. Elevated calcium level. Rule out pneumonia/lung cancer. History of left mastectomy for breast cancer. COMPARISON: Chest x-ray dated 06/08/2017 and 03/31/2017. CT scan of the chest dated 09/11/2015, 08/15/2015. TECHNIQUE: Multidetector volumetric CT imaging of the chest was obtained noncontrast. Sagittal and coronal reformations were obtained. DLP: 216.86 mGy-cm. FINDINGS: LUNGS: Severe centrilobular emphysema and mild paraseptal emphysema are again noted involving all lobes of the lung but most prominent in the upper lobes. Central airways are diffusely thickened and patent. Biapical pleural-based reticular nodular opacities are stable, consistent with mild scarring. A benign-appearing linear branching calcification is again noted in the right middle lobe, unchanged from prior exam, possibly representing concretions within a distal small airway (series 4, image 286). No suspicious pulmonary nodule or mass. No focal area of dense consolidation. No effusion or pneumothorax. Central airways patent. LYMPHOVASCULAR STRUCTURES: Aortic and heart size normal. No pericardial effusion. Moderate aortic and coronary artery calcifications. No mediastinal, hilar or axillary adenopathy or free fluid collection. THYROID GLAND: Unremarkable to the extent included. CHEST WALL: The patient is status post left breast mastectomy with no evidence of recurrent mass in the chest wall. Several diallo are seen in the left axilla from prior lymph node resection. UPPER ABDOMEN: Included portions of the solid organs in the upper abdomen within normal limits. BONES: Diffuse osteopenia with multilevel mild vertebral spondylosis in the thoracic spine. No suspicious focal findings. IMPRESSION: 1. Severe emphysema. 2. No focal pneumonia or mass. 3. Stable benign-appearing branching calcification in the right middle lobe, possibly concretions within a distal small airway versus small granulomas. 4. No adenopathy. 5. Moderate coronary artery calcifications. 6. Status post left breast mastectomy and left axillary lymph node resection. Of note, the patient's last mammogram in our system was performed 07/26/2013. If the patient has not had outside imaging of her remaining right breast, recommend screening mammogram of the right breast.
--- NOTE | 2017-06-09 13:18 | Cons- Cardiology ---
General Information and HPI Consulting Request Date of Consult: 06/09/17 Requested By: RONALD MCDONALD MD History of Present Illness: Carolina is an 82 year old female who carries a history of dyslipidemia, diabetes , and emphysema. She also has a history of coronary artery disease, s/p anterior wall myocardial infarction. Carolina came to the ER for evaluation of shortness of breath without orthopnea. She denies any swelling. The patient denies any chest pain, pressure or tightness and is without lightheadedness or palpitations. Her chest X -ray is not suggestive of pulmonary edema and her BNP is normal. She did have some wheezing at the time of her initial presentation and she complained of a cough with greenish sputum. In addition, this patient has a mildly increased troponin. Carolina is on chronic oxygen therapy 24 hours a day and is essentially inactive. When last in the hospital for an ischemic colitis with diarrhea and dehydration her metoprolol dose was cut in half. Previously, if she walked even slowly she would become winded but cannot stand or walk at all now.It should be recalled that this patient's breathing problem does not respond well to bronchodilators. A few years ago Carolina did have dizziness and syncope in the setting of low blood pressure and infectious colitis. To Review the Patient's Prior History: In December 2009 the patient reported severe chest pressure associated with nausea, vomiting, and lightheadedness. She was found to have anterior ST elevations in V1-V5 with Q waves in V1-V3, as well as reciprocal changes consistent with a subacute anterior FL. An emergent cardiac catheterization disclosed a 95% proximal stenosis of the LAD which received a 3.0 x 18 mm Taxus stent with 0% residual stenosis and normal flow postprocedure. The stent crossed a very small diagonal branch which harbored a 70% ostial stenosis with normal flow. This small diagonal did not require further intervention. Her left main appeared normal. The left circumflex was patent and the right coronary artery was dominant and patent. Her overall ejection fraction at the time was 30% with severe anterior wall hypokinesis. Her post cath echocardiogram showed some improvement with an EF of 40%. The patient was also risk stratified with a stress test following her FL. This was negative for myocardial ischemia. Her most recent echocardiogram was in February 2010 and showed an overall normal EF of 60% with mild hypokinesis of the interventricular septum. There was trace MR, trace TR, and normal pulmonary artery pressures. Lastly, it should be recalled that Carolina has been hospitalized in the past for an episode of ischemic colitis prior to this most recent hospital admission. At that time, she did have a slight bump in her troponin without any associated chest discomfort. It was felt to be demand ischemia, likely related to her small diagonal branch, which demonstrated a 70% ostial stenosis postprocedure. Allergies/Medications Allergies: Coded Allergies: azithromycin (Mild, INTESTINAL BLEEDING 04/09/16) Home Med List: Aclidinium [place] (Tudorza Pressair) 400 MCG/ACTUATION AER.POW.BA 2 PUFF INH DAILY RESPIRATORY (Reported) Albuterol Sulfate (Proair Hfa) 90 MCG HFA.AER.AD 2 PUF INH Q4H PRN RESPIRATORY (Reported) Alprazolam 0.25 MG TABLET 1 TAB PO AD ANXIETY (Reported) Amitriptyline HCl 150 MG TABLET 1 TAB PO QPM DEPRESSION (Reported) Aspirin (Children's Aspirin) 81 MG TAB.CHEW 1 TAB PO DAILY HEART/BLOOD ( Reported) Bioflav,Lemon/Vit Bcomp,C (Lipo-Flavonoid Plus Caplet) 200 MG-100 MG TABLET 2 CAP PO DAILY SUPPLEMENT (Reported) Budesonide/Formoterol Fumarate (Symbicort 160-4.5 Mcg Inhaler) 160 MCG-4.5 MCG/ ACTUATION HFA.AER.AD 2 PUF INH DAILY RESPIRATORY (Reported) Cholecalciferol (Vitamin D3) (Vitamin D3) 2,000 UNIT TABLET 1 TAB PO DAILY SUPPLEMENT (Reported) Cyanocobalamin (Vitamin B-12) (B-12 Dots) 500 MCG TABLET 2 TAB PO DAILY SUPPLEMENT (Reported) Ferrous Sulfate 325 MG (65 MG IRON) TABLET 1 TAB PO DAILY SUPPLEMENT ( Reported) Folic Acid 1 MG TABLET 1 TAB PO DAILY SUPPLEMENT (Reported) Levothyroxine Sodium (Levoxyl) 88 MCG TABLET 1 TAB PO DAILY THYROID (Reported ) Lisinopril 5 MG TABLET 1 TAB PO DAILY HEART/BP (Reported) Metformin HCl 500 MG TABLET 1 TAB PO DAILY DM (Reported) Metoprolol Tartrate 25 MG TABLET 1 TAB PO BID HEART/BP (Reported) Boyce-3 Fatty Acids (Fish Oil Concentrate) (Unknown Strength) CAPSULE (Unknown Dose) PO DAILY SUPPLEMENT (Reported) Simvastatin (SIMVASTATIN*) 80 MG TABLET 1 TAB PO DAILY CHOLESTEROL (Reported) Ubidecarenone (Co Q-10) (Unknown Strength) CAPSULE (Unknown Dose) PO DAILY SUPPLEMENT (Reported) Past History Travel History Traveled to [place] past 21 day No Medical History Blood Transfusion Hx: No Neurological: NONE EENT: cataracts Cardiovascular: CAD, hypertension, hyperlipidemia, myocardial infarction ( anterior), STENTS Respiratory: emphysema, O2 DEP @ 2L Gastrointestinal: diverticulitis Hepatic: NONE Renal: NONE Musculoskeletal: NONE Psychiatric: anxiety Endocrine: diabetes, hypothyroidism Blood Disorders: NONE Cancer(s): L 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 Home Services at Home: None Smoking Status: Former Smoker (quit 10 years ago) ETOH Use: denies use Exam & Diagnostic Data Vital Signs and I&O Vital Signs Date Time Temp Pulse Resp B/P B/P Pulse O2 O2 Flow FiO2 Mean Ox Delivery Rate 06/09 1138 Nasal 2.0L Cannula 06/09 1054 102/64 06/09 1054 102/64 06/09 0800 94 Nasal 2.0L Cannula 06/09 0704 98.4 84 18 132/84 92 Nasal Cannula 06/09 0459 86 20 90/60 95 Nasal 2.0L Cannula 06/09 0442 94 Nasal 2.0L Cannula 06/09 0400 97.1 90 28 86/50 94 Nasal 2.0L Cannula 06/09 0000 94 Nasal 2.0L Cannula 06/08 2218 120 130/84 06/08 2200 94 Nasal 2.0L Cannula 06/08 2125 97.7 100 18 134/82 94 06/08 2046 97.0 99 20 149/72 93 Nasal 2.0L Cannula 06/08 1810 97.8 95 24 142/72 95 Nasal 2.0L Cannula 06/08 1755 97 Nasal 4.0L Cannula 06/08 1546 Nasal 4.0L Cannula 06/08 1538 Nasal 4.0L Cannula 06/08 1538 99 24 177/86 93 Nasal 4.0L Cannula Intake & Output 06/09 1600 06/09 0800 06/09 0000 06/08 1600 06/08 0800 06/08 0000 Intake Total 576.4 200 Output Total 400 200 Balance 176.4 0 Intake, IV 376.4 Intake, Oral 200 200 Output, Urine 400 200 Patient 145 lb 145 lb Weight Weight Reported by Patient Measurement Method Physical Exam: General: WD/ WN female in NAD; alert and oriented x 3 HEENT: NC/AT, PERRL, EOMI Neck: no JVD, no carotid bruit Heart: RRR w/o murmur Lungs: clear bilaterally with decreased air movement Chest: left mastectomy Abdomen: soft, NT, +ve bowel sounds Extremities: no edema Assessment/Plan Assessment/Plan * At present Carolina is lethargic and this may be due to a concurrent UTI. She is pain free with decreasing cardiac enzymes. We will treat this medically for now and will consider a cardiac catheterization when her overall condition improves. I suspect that she has demand ischemia related to respiratory distress and decreased oxygen saturation noted at the time of her admission. She does have some known branch disease consisting of a small diagonal with a 70% ostial stenosis. This is unlikely to be a life threatening lesion and is unlikely to be amenable to percutaneous revascularization. * Obtain an echocardiogram. * Continue IV heparin to complete 48 hours. Continue aspirin at 324mg daily. Also continue her statin and small dose of beta milind and ACEI. If she develops chest pain, then begin NTG and I would have a low threshold for cardiac cath. Consult Acknowledgment - Thank you for your consult request.
--- NOTE | 2017-06-09 13:25 | Cons- Pulmonary ---
General Information and HPI Consulting Request Date of Consult: 06/09/17 Requested By: med History of Present Illness: 82 YO F former smoker(1pack/day, quit 30 years back) with PMH of CAD s/p stent placement, COPD on 2 L of O2 at home, DM on metformin, HTN, hypothyroidism, left breast CA s/p mastectomy and arthritis of right hip was brought to ED with CC of worsening of dyspnea and cough with greenish sputum since this afternoon. Patient reported that she is always having dyspnea and cough sometimes and using 2 L of O2 but this afternoon it worsened. It's also associated with cough with greenish sputum, no blood or foul smell in the sputum. She repoted that she always stays in the bed due to bad right hip arthritis and walk with walker once or twice a day. She denied chest pain, sweating, palpitation, fever, chills, nausea, vomiting, abdominal pain, numbness, weakness, ill contact and dysuria. On admission; EKG was done that showed ST segement and Twave changes. She was given aspirin and nebulized with atrovent, albuterol for COPD exacerbation and 2L OF o2 Chest xray:Emphysema. No acute pulmonary findings. Allergies/Medications Allergies: Coded Allergies: azithromycin (Mild, INTESTINAL BLEEDING 04/09/16) Home Med List: Aclidinium [place] (Tudorza Pressair) 400 MCG/ACTUATION AER.POW.BA 2 PUFF INH DAILY RESPIRATORY (Reported) Albuterol Sulfate (Proair Hfa) 90 MCG HFA.AER.AD 2 PUF INH Q4H PRN RESPIRATORY (Reported) Alprazolam 0.25 MG TABLET 1 TAB PO AD ANXIETY (Reported) Amitriptyline HCl 150 MG TABLET 1 TAB PO QPM DEPRESSION (Reported) Aspirin (Children's Aspirin) 81 MG TAB.CHEW 1 TAB PO DAILY HEART/BLOOD ( Reported) Bioflav,Lemon/Vit Bcomp,C (Lipo-Flavonoid Plus Caplet) 200 MG-100 MG TABLET 2 CAP PO DAILY SUPPLEMENT (Reported) Budesonide/Formoterol Fumarate (Symbicort 160-4.5 Mcg Inhaler) 160 MCG-4.5 MCG/ ACTUATION HFA.AER.AD 2 PUF INH DAILY RESPIRATORY (Reported) Cholecalciferol (Vitamin D3) (Vitamin D3) 2,000 UNIT TABLET 1 TAB PO DAILY SUPPLEMENT (Reported) Cyanocobalamin (Vitamin B-12) (B-12 Dots) 500 MCG TABLET 2 TAB PO DAILY SUPPLEMENT (Reported) Ferrous Sulfate 325 MG (65 MG IRON) TABLET 1 TAB PO DAILY SUPPLEMENT ( Reported) Folic Acid 1 MG TABLET 1 TAB PO DAILY SUPPLEMENT (Reported) Levothyroxine Sodium (Levoxyl) 88 MCG TABLET 1 TAB PO DAILY THYROID (Reported ) Lisinopril 5 MG TABLET 1 TAB PO DAILY HEART/BP (Reported) Metformin HCl 500 MG TABLET 1 TAB PO DAILY DM (Reported) Metoprolol Tartrate 25 MG TABLET 1 TAB PO BID HEART/BP (Reported) [place]-3 Fatty Acids (Fish Oil Concentrate) (Unknown Strength) CAPSULE (Unknown Dose) PO DAILY SUPPLEMENT (Reported) Simvastatin (SIMVASTATIN*) 80 MG TABLET 1 TAB PO DAILY CHOLESTEROL (Reported) Ubidecarenone (Co Q-10) (Unknown Strength) CAPSULE (Unknown Dose) PO DAILY SUPPLEMENT (Reported) Review of Systems Review of Systems Constitutional: Reports: see HPI. Past History Travel History Traveled to [place] past 21 day No Medical History Blood Transfusion Hx: No Neurological: NONE EENT: cataracts Cardiovascular: hypertension, STENTS Respiratory: emphysema, O2 DEP @ 2L Gastrointestinal: diverticulitis Hepatic: NONE Renal: NONE Musculoskeletal: NONE Psychiatric: anxiety Endocrine: diabetes, hypothyroidism Blood Disorders: NONE Cancer(s): L BREAST CANCER CLOTH SHRINKING TESTER/Reproductive: NONE Surgical History Surgical History: non-contributory Psychosocial History Where Do You Live? Home Services at Home: None Smoking Status: Former Smoker ETOH Use: denies use Exam & Diagnostic Data Last 24 Hrs of Vital Signs/I&O Vital Signs Date Time Temp Pulse Resp B/P B/P Pulse O2 O2 Flow FiO2 Mean Ox Delivery Rate 06/09 1138 Nasal 2.0L Cannula 06/09 1054 102/64 06/09 1054 102/64 06/09 0800 94 Nasal 2.0L Cannula 06/09 0704 98.4 84 18 132/84 92 Nasal Cannula 06/09 0459 86 20 90/60 95 Nasal 2.0L Cannula 06/09 0442 94 Nasal 2.0L Cannula 06/09 0400 97.1 90 28 86/50 94 Nasal 2.0L Cannula 06/09 0000 94 Nasal 2.0L Cannula 06/08 2218 120 130/84 06/08 2200 94 Nasal 2.0L Cannula 06/08 2125 97.7 100 18 134/82 94 07/25 2046 97.0 99 20 149/72 93 Nasal 2.0L Cannula 06/08 1810 97.8 95 24 142/72 95 Nasal 2.0L Cannula 06/08 1755 97 Nasal 4.0L Cannula 06/08 1546 Nasal 4.0L Cannula 06/08 1538 Nasal 4.0L Cannula 06/08 1538 99 24 177/86 93 Nasal 4.0L Cannula Intake & Output 06/09 1600 06/09 0800 06/09 0000 Intake Total 576.4 200 Output Total 400 200 Balance 176.4 0 Intake, IV 376.4 Intake, Oral 200 200 Output, Urine 400 200 Patient 145 lb Weight Last 48 Hrs of Labs/Sae: Laboratory Tests 06/09/17 1318: Lactic Acid Pending 06/09/17 07: Anion Gap 9, Estimated GFR > 60, BUN/Creatinine Ratio 21.7, Troponin I 1.28 *H, APTT > 120 *H, CBC w Diff NO MAN DIFF REQ, RBC 3.89 L, MCV 95.3, MCH 31.7 H, RDW 13.0, MPV 8.4, Gran % 76.5 H, Lymphocytes % 17.8 L, Monocytes % 3.9, Eosinophils % 1.4, Basophils % 0.4, Absolute Granulocytes 8.2 H, Absolute Lymphocytes 1.9, Absolute Monocytes 0.4, Absolute Eosinophils 0.1, Absolute Basophils 0, PUBS MCHC 33.2 06/09/17 0435: pH 7.39, pCO2 43, pO2 80, HCO3 26, ABG O2 Sat (Measured) 95.0 L, P-50 (Temp Corrected) Y, Carboxyhemoglobin 0.5 L, O2 Concentration % 2 LPM, Temperature 98.7, O2 Delivery Method N/C, Phlebotomy Draw Site RIGHT RADIAL 06/09/17 0300: Troponin I Cancelled 06/09/17 0115: Troponin I 2.08 *H 06/08/17 2108: Troponin I 1.51 *H 06/08/17 1710: Urine Color YEL, Urine Clarity CLDY H, Urine pH 6.0, Ur Specific [place] 1.025, Urine Protein 30 H, Urine Ketones NEG, Urine Nitrite POS H, Urine Bilirubin NEG, Urine Urobilinogen 0.2, Ur Leukocyte Esterase LARGE H, Ur Microscopic SEDIMENT EXAMINED, Urine RBC 1-3, Urine WBC > 75 H, Ur Epithelial Cells MANY H , Urine Crystals RARE CA OX, Urine Bacteria MANY H, Urine Hemoglobin TRACE- LYSED, Urine Glucose NEG 06/08/17 1640: Anion Gap 13, Estimated GFR > 60, BUN/Creatinine Ratio 22.0, Glucose 121 H, Calcium 10.5 H, Total Bilirubin 0.5, AST 20, ALT 33, Alkaline Phosphatase 58, Troponin I 0.31 *H, Ppw-Y-Hgrhfdvaone Pept 155 H, Total Protein 7.3, Albumin 4.6, Globulin 2.7, Albumin/Globulin Ratio 1.7, 25-OH Vitamin D Total 35.5, PTH Intact 52.8, D-Dimer High Sensitivty 242, CBC w Diff NO MAN DIFF REQ, RBC 4.30, MCV 95.7, MCH 31.4 H, RDW 13.0, MPV 8.1, Gran % 81.7 H, Lymphocytes % 12.1 L, Monocytes % 4.3, Eosinophils % 1.6, Basophils % 0.3, Absolute Granulocytes 10.3 H, Absolute Lymphocytes 1.5, Absolute Monocytes 0.5, Absolute Eosinophils 0.2, Absolute Basophils 0, PUBS MCHC 32.8 L Microbiology 06/09 034 URINE ROUT: Legionella Antigen - COMP 06/09 340 URINE ROUT: Streptococcus pneumoniae Antigen (M - COMP Assessment/Plan Impression/Plan: SIGNIFICANT DATA CT scan reviewed Showed severe emphysema small lung nodules coronary calcification previous mastectomy Venous ultrasound no DVT Chest x-ray showed severe emphysema Blood work reviewed Troponin was elevated at 1.28 white count 10.7 with no significant left shift ABG did not reveal significant hypercarbia lawrence eomi no sig jvd chest no sig wheezing cvs agustin abd soft no sig edema IMPRESSION This is a lady with very severe emphysema, more than [id number] smoking history in the past, previous coronary artery disease with stent, oxygen use at home, diabetes, hypertension, hypothyroidism, previous breast cancer status post mastectomy, DJD, comes in with * Chest discomfort cough. Patient does have COPD but no clinical evidence suggestive of severe COPD exacerbation she may have bacterial bronchitis * She does have elevated troponin and rule out ischemic heart disease cardiology consult needs to be obtained as soon as possible * Rule out UTI * Previous Klebsiella bronchopneumonia * Hypertension diabetes hyperlipidemia RECOMMENDATION continue heparin drip Agree with ceftriaxone Continue inhalers Cardiology evaluation Check TSH if it's not done already [id number] nebulizer therapy Discontinue steroids systemic Patient might benefit from invasive cardiac workup Echocardiogram Troponin continues to raise she probably would need to go to the ICU for be transferred for evaluation Serial EKG Consult Acknowledgment - Thank you for your consult request.
[2017-06-09 14:38] VITALS: BP 102/60
[2017-06-09 17:05] LABS: PTT 51 SEC (25-37)
[2017-06-09 22:00] VITALS: BP 108/62
[2017-06-10 00:56] LABS: PTT 58 SEC (25-37)
[2017-06-10 07:11] VITALS: BP 106/68
--- NOTE | 2017-06-10 07:38 | PN- Housestaff ---
AKUA PRIDE 06/10/17 0738: Subjective Follow-up For: STEMI COPD exacerbation Subjective: Patient complains of hip pain due to her arthritis. Tramadol given. No acute events overnight. Review of Systems Constitutional: Reports: see HPI. Objective Last 24 Hrs of Vital Signs/I&O Vital Signs Date Time Temp Pulse Resp B/P B/P Pulse O2 O2 Flow FiO2 Mean Ox Delivery Rate 06/10 1442 98.3 81 20 132/70 95 Nasal 3.0L Cannula 06/10 1217 83 124/66 06/10 1217 83 124/66 06/10 1117 94 Nasal 3.0L Cannula 06/10 0800 Nasal 3.0L Cannula 06/10 0711 98.4 83 22 106/68 92 Nasal Cannula 06/10 0000 Nasal 2.0L Cannula 06/09 2200 98.7 93 24 108/62 94 Nasal 2.0L Cannula 06/09 2129 93 108/62 06/09 1825 91 Nasal 2.0L Cannula Intake & Output 06/10 1600 06/10 0800 06/10 0000 Intake Total 120 854 Output Total 300 400 Balance -180 454 Intake, IV 120 704 Intake, Oral 0 150 Number 0 0 Bowel Movements Output, Urine 300 400 Physical Exam General Appearance: Alert, Oriented X3, Mild Distress HEENT: Atraumatic, PERRLA, EOMI Neck: Supple, No JVD, No thryomegaly Cardiovascular: Regular Rate, Normal S1, Normal S2, No Murmurs Lungs: Clear to Auscultation, Normal Air Movement Abdomen: Normal Bowel Sounds, Soft, No Tenderness Extremities: No Cyanosis, No Edema, No Tenderness/Swelling Current Medications: Current Medications Sig/Amari Start time Last Medication Dose Route Stop Time Status Admin Acetaminophen 650 MG Q6 06/08 2359 AC 06/10 PO 0039 Albuterol Sulfate 3 ML Q4P PRN 06/09 1830 AC 06/09 INH 1820 Alprazolam 0.25 MG DAILY PRN 06/08 2230 AC 06/10 PO 06/15 222 0039 Amitriptyline HCl 100 MG AT BEDTIME 06/10 2200 AC PO Amitriptyline HCl 150 MG AT BEDTIME 06/08 2200 DC 06/09 PO 2129 Aspirin 325 MG DAILY 06/10 1000 AC 06/10 PO 1217 Atorvastatin Calcium 80 MG 1700 06/09 1700 AC 06/09 PO 1756 Budesonide/ 2 PUF 2200 06/09 2200 AC 06/09 Formoterol Fumarate INH 2129 Ceftriaxone Sodium 1,000 MG 0000 06/10 0000 DC 06/10 IV 0045 Cefuroxime Sodium 250 MG Q12 06/10 2200 AC PO 06/15 1001 Cholecalciferol 1,000 IU DAILY 06/09 1000 AC 06/10 PO 1217 Cyanocobalamin 1,000 MCG DAILY 06/09 1000 AC 06/10 PO 1216 Dextrose/Sodium 1,000 ML Q13H 06/09 0630 DC 06/09 Chloride IV 06/09 1929 0812 Docusate Sodium 100 MG DAILY NEEDED PRN 06/10 1430 AC PO Ferrous Sulfate 325 MG DAILY 06/09 1000 AC 06/10 PO 1217 Folic Acid 1 MG DAILY 06/09 1000 AC 06/10 PO 1217 Guaifenesin 600 MG Q12 06/09 1000 AC 06/10 PO 1217 Heparin Sodium 25,000 UNIT Q24H 06/08 2230 AC 06/08 (Porcine) IV 06/10 2300 2345 Sodium Chloride 500 ML Levothyroxine Sodium 0.088 MG DAILY AC 06/09 0700 AC 06/10 PO 1217 Lisinopril 5 MG DAILY 06/09 1000 AC 06/10 PO 1217 Lorazepam 0.5 MG ONCE ONE 06/10 1345 CAN IM 06/10 1346 Lorazepam 0.5 MG ONCE ONE 06/10 1345 DC 06/10 IV 06/10 1346 1350 Lorazepam 2 MG .STK-MED ONE 06/10 0217 DC IM 06/10 0218 Metoprolol Tartrate 25 MG BID 06/08 2200 AC 06/10 PO 1217 Polyethylene Glycol 17 GM DAILY PRN 06/10 1430 AC PO Senna 187 MG AT BEDTIME PRN 06/10 1430 AC PO Tiotropium [place] 1 PUF DAILY 06/09 1000 AC 06/10 INH 1222 Tramadol HCl 50 MG Q6 PRN 06/10 1300 AC 06/10 PO 1307 Last 24 Hrs of Lab/Sae Results Last 24 Hrs of Labs/Mics: Laboratory Tests 06/10/17 0713: Anion Gap 8, Estimated GFR > 60, BUN/Creatinine Ratio 28.3 H, TSH 0.537, Free T4 1.59, APTT 82 H 06/10/17 0010: APTT 58 H 06/09/17 1630: APTT 51 H Microbiology 06/10 1250 URINE ROUT: Urine Culture - RECD 06/10 1035 BLOOD: Blood Culture - RECD 06/10 1030 BLOOD: Blood Culture - RECD Orders ECHO Findings: 06/09/17 CONCLUSIONS 1. Moderately decreased EF of 30% with regional wall motion abnormalities as above. Impaired LV relaxation. 2. Trace tricuspid regurgitation. 3. Mild pulmonary hypertension. Miscellaneous Findings: 06/10/17 US-RENAL/KIDNEY IMPRESSION: Mild fullness right collecting system. A cause for the patient's decreased urine output is not seen. Assessment/Plan Assessment: A: Ms. Murray is an 82 yo F with a PMH significant for CAD s/p stent placement for a anterior wall OK on asa 81mg, COPD on 2L oxygen NC, DM on metformin, HTN on metoprolol 25mg and simvastatin 80mg, hypothroidism on levothyroxine, L breast CA s/p mastectomy, and arthritis. Presented to the ED with SOB and cough with green sputum production. She noticed that she required her albuterol inhaler more often at the time. She denied any chest pain, nausea, vomiting, abdominal pain, diarrhea, sweating, palpitation or dizziness. P: 1. NSTEMI In 2009, she was found to have anterior ST elevations in V1-V5 with Q waves in V1-V3, as well as reciprocal changes consistent with a subacute anterior OK.An emergent cardiac catheterization disclosed a 95% proximal stenosis of the LAD and 70% ostial stenosis. A stent was placed on her LAD. Her EF was 30% with severe anterior wall hypokinesis. Her post cath echo showed some improvement with an EF of 40%. ECHO in February 2010 showed EF 60%. On admission her trops were elevated (0.31, 1.51, 2.08), ECG-nonspecific ST/T wave changes, LE doppler ruled out DVT. * Cardio consulted-Dr. Engel * Possible cardiac cath when she improves * ECHO revealed EF 30% with regional wall abnormalities and mild pulmonary HTN * Continue IV Heparin, full dose ASA, atorvastatin 80mg, metoprolol 25mg, lisinopril 5mg * NTG if she has CP 2. COPD exacerbation She is a former smoker, quit 30 years ago previously smoked 1ppd, hx of emphysema. She requires 2L of oxygen NC at home. On admission she reported cough with sputum production and required her albuterol inhaler more excessively. * CXR showed emphysema, no acute findings * ABG 7./ * Continue TRC * Changed IV ceftriaxone to ceftin 250mg q12 PO 3. UTI (pos nitrites, esterase, epithelial cells), decreased urine output Renal US negative for cause of possible urinary retention * BC/UC ordered 4. Elevated trop - trending down, elevation most likely due to demand ischemia 5. Hypothyroidism * Continue home meds * TSH/T4 ordered 6. History of L breast CA s/p L breast mastectomy Last mammogram in our system was performed 07/26/2013 Diet-CC3 Code:Full Problem List: 1. COPD 2. Diabetes mellitus 3. Hypothyroidism 4. Dyspnea 5. Hip pain Pain Ratin Pain Location: Hip pain Pain Goal: Pain 4 or less Pain Plan: Tylenol, Tramadol Tomorrow's Labs & Rationales: UC/BC for possible UTI and sepsis MARISSA GARCIA 06/10/17 1021: Attending MD Review Statement Attending Statement Attending MD Statement: examined this patient, discuss w/resident/PA/BEHAVIORAL SCIENCES DEPARTMENT CHAIR, agreed w/resident/PA/BEHAVIORAL SCIENCES DEPARTMENT CHAIR, discussed with family, reviewed EMR data (avail), discussed with nursing, discussed with case mgmt, reviewed images, amended to note Attending Assessment/Plan: 82 o/f with PMH: CAD S/P stent, CA breast S/P mastectomy left side, COPD on 2 L nasal cannula at home, hypothyroidism, DM, HTN, HLD comes with worsening shortness of breath. ASSESSMENT 1. Acute on chronic respiratory failure 2. Sepsis 2/2 UTI 3. COPD with brocnhitis 4. NSTEMI 2/2 demand ischemia 5. Hypothryoidism 6. Ca breast s/p mastectomy 7. DM 8. HTN 9. Hyperlipidemia 10. ?New onset CHF with systolic dsyfunction. PLAN admit to telemetry monitoring, serial cardiac enzymes. Cardiology consulted and recommend anticaogulation , antiplatelet therapy, statin, b milind/ brynn inhibitor. plan for cath as per cardio. ECHO Suggestive of depressed EF. Pulm consulted, oxygen supplementation. check LA. f/u CT chest no pneumonia/ adneopathy. follow cultures and taper abx as per c/s reports RISS and titrate insulin as needed. GI/DVT propyalxis follow cardiology.
[2017-06-10 08:27] LABS: PTT 82 SEC (25-37)
--- NOTE | 2017-06-10 08:32 | ECHOCARDIOGRAM REPORT ---
BENNIE KOLB Age: 82 : 1935 Gender: F Exam Date: 06/09/2017 18:42 Exam Location: [address] Ht (in): 63 Wt (lb): 145 BSA: 1.72 BP: 102 / 60 Ordering Physician: BRITTON COLEY MD Referring Physician: Herbert Engel MD, PhD Technologist: [facility] Room Number: 179-01 Indications: SHORTNESS OF BREATH Rhythm: Sinus Technical Quality: fair FINDINGS Left Ventricle Normal left ventricular size and wall thickness. Moderately decreased systolic function with apical dyskinesis, mid to distal inferoseptal and mid to distal anteroseptal wall hypokinesis. Diastolic filling pattern is consistent with impaired LV relaxation. The ejection fraction is visually estimated at 30%. Right Ventricle The right ventricle is normal in size and function. Right Atrium The right atrium is normal in size. Left Atrium The left atrium is normal in size. The interatrial septum is intact. Mitral Valve The mitral valve demonstrates mild posterior annular calcification with normal function. There is no mitral regurgitation. Aortic Valve Structurally normal aortic valve without significant sclerosis or stenosis. There is no aortic regurgitation. Tricuspid Valve The tricuspid valve is normal in structure and function. There is trace tricuspid regurgitation. Pulmonary artery systolic pressure is mildly elevated to 38.6mmHg. Pulmonic Valve Structurally normal pulmonic valve. There is no pulmonic regurgitation. Pericardium Normal pericardium without effusion. No pleural effusion. Great Vessels Normal aortic root dimension. The aortic arch and great vessels are well seen and are normal. CONCLUSIONS 1. Moderately decreased EF of 30% with regional wall motion abnormalities as above. Impaired LV relaxation. 2. Trace tricuspid regurgitation. 3. Mild pulmonary hypertension. Herbert Engel M.D. (Electronically Signed) Final Date: 10 June 2017 08:31 MEASUREMENTS (Male / Female) Normal Values 2D ECHO LV Diastolic Diameter PLAX 3.8 cm 4.2 - 5.9 / 3.9 - 5.3 cm LV Systolic Diameter PLAX 2.2 cm 2.1 - 4.0 cm LV Fractional Shortening PLAX 42.1 % 25 - 46 % LV Ejection Fraction 2D Teich 73.8 % IVS Diastolic Thickness 1.0 cm LVPW Diastolic Thickness 1.1 cm LV Relative Wall Thickness 0.6 RV Internal Dim ED PLAX 2.4 cm 1.9 - 3.8 cm LVOT Diameter 1.9 cm Aortic Root Diameter 3.0 cm LA Systolic Diameter LX 2.1 cm 3.0 - 4.0 / 2.7 - 3.8 cm DOPPLER AV Peak Velocity 98.1 cm/s AV Peak Gradient 3.8 mmHg AV Mean Velocity 65.7 cm/s AV Mean Gradient 2.0 mmHg AV Velocity Time Integral 18.8 cm LVOT Peak Velocity 87.2 cm/s LVOT Peak Gradient 3.0 mmHg LVOT Mean Velocity 58.5 cm/s LVOT Mean Gradient 2.0 mmHg LVOT Velocity Time Integral 16.1 cm LVOT Stroke Volume 45.6 cm AV Area Cont Eq vti 2.4 cm AV Area Cont Eq pk 2.5 cm MV Peak Velocity 91.8 cm/s MV Peak Gradient 3.4 mmHg MV Mean Velocity 52.8 cm/s MV Mean Gradient 1.0 mmHg Mitral E Point Velocity 41.5 cm/s Mitral A Point Velocity 85.4 cm/s Mitral E to A Ratio 0.5 MV PHT Velocity 65.2 cm/s MV Deceleration [place] 316.0 cm/s MV Pressure Half Time 61.9 ms MV Area PHT 3.6 cm MV Deceleration Time 246.0 ms TR Peak Velocity 290.0 cm/s TR Peak Gradient 33.6 mmHg Right Atrial Pressure 5.0 mmHg Pulmonary Artery Systolic Pressu 38.6 mmHg Right Ventricular Systolic Press 38.6 mmHg PV Peak Velocity 86.8 cm/s PV Peak Gradient 3.0 mmHg PV Mean Velocity 59.2 cm/s PV Mean Gradient 2.0 mmHg PV Velocity Time Integral 13.3 cm LV E' Lateral Velocity 5.6 cm/s Mitral E to LV E' Lateral Ratio 7.5 LV E' Septal Velocity 4.7 cm/s Mitral E to LV E' Septal Ratio 8.9
--- NOTE | 2017-06-10 11:10 | PN- Pulmonary ---
Subjective HPI/Critical Care Issues: Pt appears tired and fatigued Still has some chest discomfort Objective Current Medications: Current Medications Sig/Amari Start time Last Medication Dose Route Stop Time Status Admin Acetaminophen 650 MG Q6 06/08 2359 AC 06/10 PO 0039 Albuterol Sulfate 3 ML Q4P PRN 06/09 1830 AC 06/09 INH 1820 Alprazolam 0.25 MG DAILY PRN 06/08 2230 AC 06/10 PO 06/15 2229 0039 Amitriptyline HCl 150 MG AT BEDTIME 06/08 2200 AC 06/09 PO 2129 Aspirin 325 MG DAILY 06/10 1000 AC PO Aspirin 81 MG DAILY 06/09 1000 DC 06/09 PO 1054 Atorvastatin Calcium 80 MG 1700 06/09 1700 AC 06/09 PO 1756 Budesonide/ 2 PUF 2200 06/09 2200 AC 06/09 Formoterol Fumarate INH 9 Ceftriaxone Sodium 1,000 MG 0000 06/10 0000 AC 06/10 IV 0045 Ceftriaxone Sodium 1,000 MG DAILY 06/08 2300 DC 06/09 IV 0002 Cholecalciferol 1,000 IU DAILY 06/09 1000 AC PO Cyanocobalamin 1,000 MCG DAILY 06/09 1000 AC PO Dextrose/Sodium 1,000 ML Q13H 06/09 0630 DC 06/09 Chloride IV 06/09 1929 0812 Ferrous Sulfate 325 MG DAILY 06/09 1000 AC PO Folic Acid 1 MG DAILY 06/09 1000 AC PO Guaifenesin 600 MG Q12 06/09 1000 AC 06/09 PO 2129 Heparin Sodium 25,000 UNIT Q24H 06/08 2230 AC 06/08 (Porcine) IV 06/10 2300 2345 Sodium Chloride 500 ML Levothyroxine Sodium 0.088 MG DAILY AC 06/09 0700 AC 06/09 PO 0609 Lisinopril 5 MG DAILY 06/09 1000 AC 06/09 PO 1054 Lorazepam 2 MG .STK-MED ONE 06/10 0217 DC IM 06/10 0218 Metoprolol Tartrate 25 MG BID 06/08 2200 AC 06/09 PO 2129 Tiotropium [place] 1 PUF DAILY 06/09 1000 AC 06/09 INH 1054 Vital Signs & I&O Last 24 Hrs of Vitals and I&O: Vital Signs Date Time Temp Pulse Resp B/P B/P Pulse O2 O2 Flow FiO2 Mean Ox Delivery Rate 06/10 0800 Nasal 3.0L Cannula 06/10 0711 98.4 83 22 106/68 92 Nasal Cannula 06/10 0000 Nasal 2.0L Cannula 06/09 2200 98.7 93 24 108/62 94 Nasal 2.0L Cannula 06/09 2129 93 108/62 06/09 1825 91 Nasal 2.0L Cannula 06/09 1438 97.8 80 20 102/60 94 Nasal 2.0L Cannula 06/09 1138 Nasal 2.0L Cannula Intake & Output 06/10 1600 06/10 0800 06/10 0000 Intake Total 120 854 Output Total 300 400 Balance -180 454 Intake, IV 120 704 Intake, Oral 0 150 Number 0 0 Bowel Movements Output, Urine 300 400 Impression/Plan Impression/Plan Impression/Plan: SIGNIFICANT DATA CT scan reviewed Showed severe emphysema small lung nodules coronary calcification previous mastectomy Venous ultrasound no DVT Chest x-ray showed severe emphysema Blood work reviewed Troponin was elevated at 1.28 white count 10.7 with no significant left shift ABG did not reveal significant hypercarbia lawrence eomi no sig jvd chest no sig wheezing cvs agustin abd soft no sig edema IMPRESSION This is a lady with very severe emphysema, more than [id number] smoking history in the past, previous coronary artery disease with stent, oxygen use at home, diabetes, hypertension, hypothyroidism, previous breast cancer status post mastectomy, DJD, comes in with * Chest discomfort cough. Patient does have COPD but no clinical evidence suggestive of severe COPD exacerbation she may have bacterial vs viral bronchitis * She does have elevated troponin and sig reduced ejection fraction s/w NSTMI * Rule out UTI * Previous Klebsiella bronchopneumonia * Hypertension diabetes hyperlipidemia RECOMMENDATION continue heparin drip Can change to po ceftin for a total abx of 5 days Continue inhalers Cardiology evaluation ongoing [id number] nebulizer therapy May reduce amytriptaline to 100 as she is considerably sleepy Patient might benefit from invasive cardiac workup will follow Prog guarded
--- NOTE | 2017-06-10 13:32 | ULTRASOUND REPORT ---
EXAMINATION: US RETROPERITONEAL COMPLETE (RENAL) CLINICAL INFORMATION: Decrease urine output with question of obstruction. COMPARISON: CT scan yesterday. TECHNIQUE: Real-time imaging of the kidneys and bladder. FINDINGS: RIGHT KIDNEY: 9.7 x 3.8 x 4.0cm (SAG x AP x TRV). There is mild fullness in the renal collecting system. The kidney is normal in size, contour, and echogenicity. Renal cortical thickness is normal. No calculi or focal parenchymal lesions. No gross hydronephrosis. LEFT KIDNEY: 10.0 x 4.3 x 4.3 cm (SAG x AP x TRV). The kidney is normal in size, contour, and echogenicity. Renal cortical thickness is normal. No calculi or focal parenchymal lesions. No hydronephrosis. BLADDER: Well-distended and normal. Bilateral ureteral jets are not demonstrated. IMPRESSION: Mild fullness right collecting system. A cause for the patient's decreased urine output is not seen.
[2017-06-10 14:42] VITALS: BP 132/70
--- NOTE | 2017-06-10 19:26 | PN- Cardiology ---
Subjective Subjective: * Carolina was could not be encouraged to engage in meaningful conversation. No reported complaints. * cardiac enzymes have trended down * decreased EF with distribution consistent with a Takasubo cardiomyopathy. Objective Vital Signs and I&Os Vital Signs Date Time Temp Pulse Resp B/P B/P Pulse O2 O2 Flow FiO2 Mean Ox Delivery Rate 06/10 1442 98.3 81 20 132/70 95 Nasal 3.0L Cannula 06/10 1217 83 124/66 06/10 1217 83 124/66 06/10 1117 94 Nasal 3.0L Cannula 06/10 0800 Nasal 3.0L Cannula 06/10 0711 98.4 83 22 106/68 92 Nasal Cannula 06/10 0000 Nasal 2.0L Cannula 06/09 2200 98.7 93 24 108/62 94 Nasal 2.0L Cannula 06/09 2129 93 108/62 Intake & Output 06/10 1600 06/10 0800 06/10 0000 06/09 1600 06/09 0800 06/09 0000 Intake Total 120 854 900 576.4 200 Output Total 300 400 400 200 Balance -180 454 900 176.4 0 Intake, IV 120 704 700 376.4 Intake, Oral 0 150 200 200 200 Number 0 0 Bowel Movements Output, Urine 300 400 400 200 Patient 145 lb Weight Physical Exam: General: WD/ WN female in NAD; lethargic Neck: no JVD, no carotid bruit Heart: RRR w/o murmur Lungs: clear bilaterally with decreased air movement Chest: left mastectomy Extremities: no edema Assessment/Plan Assessment/Plan * Patient is lethargic. Minimize all sedating medications. * At present Carolina is lethargic and this may be due to a concurrent UTI verses sedating medications. She is pain free with decreasing cardiac enzymes. We will treat this medically for now and will consider a cardiac catheterization when her overall condition improves. there is a report of decreased urination that is not accompanied by any rise in creatinine. Monitor for any renal insufficiency that may affect her tolerance for contrast. I suspect that she has demand ischemia related to respiratory distress and decreased oxygen saturation noted at the time of her admission. She does have some known branch disease consisting of a small diagonal with a 70% ostial stenosis. This is unlikely to be a life threatening lesion and is unlikely to be amenable to percutaneous revascularization. * Continue IV heparin to complete 48 hours. Continue aspirin at 324mg daily. Also continue her statin and small dose of beta milind and ACEI. If she develops chest pain, then begin NTG and I would have a low threshold for cardiac cath. Continue telemetry? Yes
[2017-06-10 21:20] LABS: PTT 94 SEC (25-37)
[2017-06-10 22:18] VITALS: BP 100/54
[2017-06-11 04:47] LABS: PTT 78 SEC (25-37)
--- NOTE | 2017-06-11 05:18 | NUR ---
HEPARIN GTT TO BE D/NATALYA AT MIDNIGHT 06/11/17. NO OTHER ANTICOAGULATION ORDERED. VERIFIED THE DISCONTINUATION OF THE HEPARIN GTT WITH DR. COLEY AND THE GTT WAS D/NATALYA. WILL PASS ON IN REPORT.
[2017-06-11 06:40] VITALS: BP 100/60
--- NOTE | 2017-06-11 07:10 | PN- Housestaff ---
AKUA PRIDE 06/11/17 0710: Subjective Follow-up For: STEMI COPD exacerbation UTI Subjective: Patient has no complaints. No acute events overnight Review of Systems Constitutional: Reports: see HPI. Objective Last 24 Hrs of Vital Signs/I&O Vital Signs Date Time Temp Pulse Resp B/P B/P Pulse O2 O2 Flow FiO2 Mean Ox Delivery Rate 06/11 1010 74 110/52 06/11 1010 74 110/52 06/11 0849 94 Nasal 3.0L Cannula 06/11 0640 98.0 74 18 100/60 92 Nasal 3.0L Cannula 06/11 0000 Nasal 3.0L Cannula 06/10 2218 98.7 64 18 100/54 95 06/10 2054 88 118/68 06/10 1600 98 Nasal 3.0L Cannula 06/10 1442 98.3 81 20 132/70 95 Nasal 3.0L Cannula Intake & Output 06/11 1600 06/11 0800 06/11 0000 Intake Total 50 600 Output Total 300 Balance -250 600 Intake, IV 120 Intake, Oral 50 480 Number 0 Bowel Movements Output, Urine 300 Physical Exam General Appearance: Alert, Oriented X3, Cooperative, No Acute Distress HEENT: Atraumatic, PERRLA Neck: Supple, No JVD, No thryomegaly Cardiovascular: Normal S1, Normal S2 Lungs: Clear to Auscultation, Normal Air Movement Abdomen: Normal Bowel Sounds, Soft, No Tenderness Extremities: No Cyanosis, No Edema, No Tenderness/Swelling Current Medications: Current Medications Sig/Amari Start time Last Medication Dose Route Stop Time Status Admin Acetaminophen 650 MG Q6 06/08 2359 AC 06/11 PO 1836 Albuterol Sulfate 3 ML Q4P PRN 06/09 1830 AC 06/09 INH 1820 Alprazolam 0.25 MG DAILY PRN 06/08 2230 DC 06/10 PO 06/15 222 0039 Amitriptyline HCl 50 MG AT BEDTIME 06/11 2200 AC PO Amitriptyline HCl 100 MG AT BEDTIME 06/10 2200 DC 06/10 PO 205 Aspirin 325 MG DAILY 06/10 1000 AC 06/11 PO 1013 Atorvastatin Calcium 80 MG 1700 06/09 1700 AC 06/11 PO 1835 Bisacodyl 10 MG ONCE ONE 06/11 1830 DC AL 06/11 183 Budesonide/ 2 PUF 2200 06/09 2200 AC 06/10 Formoterol Fumarate INH 2056 Cefuroxime Sodium 250 MG Q12 06/10 2200 AC 06/11 PO 06/15 1001 1010 Cholecalciferol 1,000 IU DAILY 06/09 1000 AC 06/11 PO 1008 Cyanocobalamin 1,000 MCG DAILY 06/09 1000 AC 06/11 PO 1008 Docusate Sodium 100 MG DAILY NEEDED PRN 06/10 1430 AC 06/10 PO 2054 Ferrous Sulfate 325 MG DAILY 06/09 1000 AC 06/11 PO 1010 Folic Acid 1 MG DAILY 06/09 1000 AC 06/11 PO 1010 Guaifenesin 600 MG Q12 06/09 1000 AC 06/11 PO 1010 Heparin Sodium 25,000 UNIT Q24H 06/08 2230 DC 06/11 (Porcine) IV 06/10 2300 0135 Sodium Chloride 500 ML Insulin Aspart 0 TIDAC 06/11 1700 AC SC Levothyroxine Sodium 0.088 MG DAILY AC 06/09 0700 AC 06/11 PO 0542 Lisinopril 5 MG DAILY 06/09 1000 AC 06/11 PO 1010 Metoprolol Tartrate 25 MG BID 06/08 2200 AC 06/11 PO 1010 Polyethylene Glycol 17 GM DAILY PRN 06/10 1430 AC 06/11 PO 1011 Senna 187 MG AT BEDTIME PRN 06/10 1430 AC PO Sodium Chloride 1,000 ML BOLUS ONE 06/11 0945 DC 06/11 IV 06/11 1044 1007 Tiotropium [place] 1 PUF DAILY 06/09 1000 AC 06/11 INH 1010 Tramadol HCl 50 MG Q6 PRN 06/10 1300 DC 06/10 PO 1307 Last 24 Hrs of Lab/Sae Results Last 24 Hrs of Labs/Mics: Laboratory Tests 06/11/17 0930: Sodium Cancelled, Potassium Cancelled, Chloride Cancelled, Carbon Dioxide Cancelled, Anion Gap Cancelled, BUN Cancelled, Creatinine Cancelled, BUN/ Creatinine Ratio Cancelled 06/11/17 0340: APTT 78 H 06/10/172020: APTT 94 H Assessment/Plan Assessment: A: Ms. Murray is an 82 yo F with a PMH significant for CAD s/p stent placement for a anterior wall VT on asa 81mg, COPD on 2L oxygen [place], DM on metformin, HTN on metoprolol 25mg and simvastatin 80mg, hypothroidism on levothyroxine, L breast CA s/p mastectomy, and arthritis. Presented to the ED with SOB and cough with green sputum production. She noticed that she required her albuterol inhaler more often at the time. She denied any chest pain, nausea, vomiting, abdominal pain, diarrhea, sweating, palpitation or dizziness. P: 1. NSTEMI In 2009, she was found to have anterior ST elevations in V1-V5 with Q waves in V1-V3, as well as reciprocal changes consistent with a subacute anterior VT.An emergent cardiac catheterization disclosed a 95% proximal stenosis of the LAD and 70% ostial stenosis. A stent was placed on her LAD. Her EF was 30% with severe anterior wall hypokinesis. Her post cath echo showed some improvement with an EF of 40%. ECHO in February 2010 showed EF 60%. On admission her trops were elevated (0.31, 1.51, 2.08), ECG-nonspecific ST/T wave changes, LE doppler ruled out DVT. * Cardio consulted-Dr. Engel * Possible cardiac cath when she improves * ECHO revealed EF 30% with regional wall abnormalities and mild pulmonary HTN * Continue full dose ASA, atorvastatin 80mg, metoprolol 25mg, lisinopril 5mg * NTG if she has CP * Discontinue heparin 2. COPD exacerbation She is a former smoker, quit 30 years ago previously smoked 1ppd, hx of emphysema. She requires 2L of oxygen [place] at home. On admission she reported cough with sputum production and required her albuterol inhaler more excessively. * CXR showed emphysema, no acute findings * ABG 7.39/43/26 * Continue TRC * Changed IV ceftriaxone to ceftin 250mg q12 PO 3. UTI (pos nitrites, esterase, epithelial cells), decreased urine output Renal US negative for cause of possible urinary retention * BC/UC ordered 4. Elevated trop - trending down, elevation most likely due to demand ischemia 5. Hypothyroidism * Continue home meds * TSH/T4 nl 6. History of L breast CA s/p L breast mastectomy Last mammogram in our system was performed 07/26/2013 Diet-CC3 Code:Full Problem List: 1. Hypothyroidism 2. Dyspnea 3. Arthritis pain 4. Hip pain Pain Ratin Pain Location: Generalized Arthritic pain Pain Goal: Pain 4 or less Pain Plan: Tylenol Tomorrow's Labs & Rationales: BEP to monitor renal function MARISSA GARCIA 06/11/17 1136: Attending MD Review Statement Attending Statement Attending MD Statement: examined this patient, discuss w/resident/PA/SPANISH TEACHER, agreed w/resident/PA/SPANISH TEACHER, discussed with family, reviewed EMR data (avail), discussed with nursing, discussed with case mgmt, reviewed images, amended to note Attending Assessment/Plan: 82 o/f with PMH: CAD S/P stent, CA breast S/P mastectomy left side, COPD on 2 L nasal cannula at home, hypothyroidism, DM, HTN, HLD comes with worsening shortness of breath. ASSESSMENT 1. Acute on chronic respiratory failure 2. Sepsis 2/2 UTI 3. COPD with brocnhitis 4. NSTEMI 2/2 demand ischemia 5. Hypothryoidism 6. Ca breast s/p mastectomy 7. DM 8. HTN 9. Hyperlipidemia 10. ?New onset CHF with systolic dsyfunction. PLAN admit to telemetry monitoring, serial cardiac enzymes treding down Cardiology consulted and recommended anticaogulation for 48 hrs , antiplatelet therapy, statin, b milind/ brynn inhibitor. plan for cath as per cardio. ECHO Suggestive of depressed EF. Pulm consulted, oxygen supplementation. f/u CT chest no pneumonia/adneopathy. follow cultures and taper abx as per c/s reports RISS and titrate insulin as needed. GI/DVT propyalxis. Patient clincially improving with improving mental status. Sedative were held. plan for d/c as per cardiolgoy, daughter and patient declines rehab and wants to go home.
--- NOTE | 2017-06-11 13:23 | PN- Pulmonary ---
Subjective HPI/Critical Care Issues: Stable sleepy on and off no sig wheezing cough Objective Current Medications: Current Medications Sig/Amari Start time Last Medication Dose Route Stop Time Status Admin Acetaminophen 650 MG Q6 06/08 2359 AC 06/11 PO 0542 Albuterol Sulfate 3 ML Q4P PRN 06/09 1830 AC 06/09 INH 1820 Alprazolam 0.25 MG DAILY PRN 06/08 2230 AC 06/10 PO 06/15 2229 0039 Amitriptyline HCl 100 MG AT BEDTIME 06/10 2200 AC 06/10 PO 2054 Amitriptyline HCl 150 MG AT BEDTIME 06/08 2200 DC 06/09 PO 2129 Aspirin 325 MG DAILY 06/10 1000 AC 06/11 PO 1013 Atorvastatin Calcium 80 MG 1700 06/09 1700 AC 06/10 PO 2026 Budesonide/ 2 PUF 0 06/09 2200 AC 06/10 Formoterol Fumarate INH 2055 Ceftriaxone Sodium 1,000 MG 0000 06/10 0000 DC 06/10 IV 0045 Cefuroxime Sodium 250 MG Q12 06/10 2200 AC 06/11 PO 06/15 1001 1010 Cholecalciferol 1,000 IU DAILY 06/09 1000 AC 06/11 PO 1008 Cyanocobalamin 1,000 MCG DAILY 06/09 1000 AC 06/11 PO 1008 Docusate Sodium 100 MG DAILY NEEDED PRN 06/10 1430 AC 06/10 PO 205 Ferrous Sulfate 325 MG DAILY 06/09 1000 AC 06/11 PO 1010 Folic Acid 1 MG DAILY 06/09 1000 AC 06/11 PO 1010 Guaifenesin 600 MG Q12 06/09 1000 AC 06/11 PO 1010 Heparin Sodium 25,000 UNIT Q24H 06/08 2230 DC 06/11 (Porcine) IV 06/10 2300 0135 Sodium Chloride 500 ML Levothyroxine Sodium 0.088 MG DAILY AC 06/09 0700 AC 06/11 PO 0542 Lisinopril 5 MG DAILY 06/09 1000 AC 06/11 PO 1010 Lorazepam 0.5 MG ONCE ONE 06/10 1345 CAN IM 06/10 1346 Lorazepam 0.5 MG ONCE ONE 06/10 1345 DC 06/10 IV 06/10 1346 1350 Metoprolol Tartrate 25 MG BID 06/08 2200 AC 06/11 PO 1010 Polyethylene Glycol 17 GM DAILY PRN 06/10 1430 AC 06/11 PO 1011 Senna 187 MG AT BEDTIME PRN 06/10 1430 AC PO Sodium Chloride 1,000 ML BOLUS ONE 06/11 0945 DC 06/11 IV 06/11 1044 1007 Tiotropium [place] 1 PUF DAILY 06/09 1000 AC 06/11 INH 1010 Tramadol HCl 50 MG Q6 PRN 06/10 1300 AC 06/10 PO 1307 Vital Signs & I&O Last 24 Hrs of Vitals and I&O: Vital Signs Date Time Temp Pulse Resp B/P B/P Pulse O2 O2 Flow FiO2 Mean Ox Delivery Rate 06/11 1010 74 110/52 06/11 1010 74 110/52 06/11 0849 94 Nasal 3.0L Cannula 06/11 0640 98.0 74 18 100/60 92 Nasal 3.0L Cannula 06/11 0000 Nasal 3.0L Cannula 06/10 2218 98.7 64 18 100/54 95 06/10 2054 88 118/68 06/10 1600 98 Nasal 3.0L Cannula 06/10 1442 98.3 81 20 132/70 95 Nasal 3.0L Cannula Intake & Output 06/11 1600 06/11 0800 06/11 0000 Intake Total 50 600 Output Total 300 Balance -250 600 Intake, IV 120 Intake, Oral 50 480 Number 0 Bowel Movements Output, Urine 300 Impression/Plan Impression/Plan Impression/Plan: SIGNIFICANT DATA CT scan reviewed Showed severe emphysema small lung nodules coronary calcification previous mastectomy Venous ultrasound no DVT Chest x-ray showed severe emphysema Blood work reviewed Troponin was elevated at 1.28 white count 10.7 with no significant left shift ABG did not reveal significant hypercarbia lawrence eomi no sig jvd chest no sig wheezing cvs agustin abd soft no sig edema IMPRESSION This is a lady with very severe emphysema, more than [id number] smoking history in the past, previous coronary artery disease with stent, oxygen use at home, diabetes, hypertension, hypothyroidism, previous breast cancer status post mastectomy, DJD, comes in with * Chest discomfort cough. Patient does have COPD but no clinical evidence suggestive of severe COPD exacerbation she may have bacterial vs viral bronchitis * Lethergy prob due to polypharmacy * She does have elevated troponin and sig reduced ejection fraction s/w NSTMI vs Stress induced CM * Previous Klebsiella bronchopneumonia * Hypertension diabetes hyperlipidemia RECOMMENDATION Can change to po ceftin for a total abx of 5 days Continue inhalers REduce amytriptaline to 50 qhs DC all narcotics like tramadol Do not give benzo unless needed [id number] nebulizer therapy Prog guarded
--- NOTE | 2017-06-11 13:23 | Discharge Summary ---
Visit Information Visit Dates Admission Date: 06/08/17 Discharge Date: 06/12/17 Hospital Course Course Attending Physician: RONALD MCDONALD MD Primary Care Physician: EDGAR CHIN,LANA Rawls Other Care Providers: Cariology- Francesco CHIN, [facility] Pulmonology- Sheila CHIN, [facility] Course: Ms. Murray is an 82 yo F with a PMH significant for CAD s/p stent placement for a anterior wall ND on asa 81mg, COPD on 2L oxygen [place], DM on metformin, HTN on metoprolol 25mg and simvastatin 80mg, hypothroidism on levothyroxine, L breast CA s/p mastectomy, and arthritis. Presented to the ED with SOB and cough with green sputum production. She noticed that she required her albuterol inhaler more often at the time. She denied any chest pain, nausea, vomiting, abdominal pain, diarrhea, sweating, palpitation or dizziness. ED Course- Vitals: T max 97.8, HR 90s, RR 24, blood pressure 177/86 upon arrival improved to 142/72, requiring 4 L by nasal cannula to saturate at 93% at arrival. On exam: A O 3, cooperative, mild respiratory distress, neck supple, JVD normal , no lymphadenopathy, mucosa dry, no focal neurological deficit, no obvious skin rashes or inflammation, legs are symmetrical left to be content right, no pitting edema . CVS: S1-S2, RRR. RS: Diffuse wheezing with prolonged expiratory phase. Abdomen: Soft, NT, ND, bowel sounds present. Peripheral pulses perfusion normal Labs: WBC 12.2, neutrophils 81% otherwise CBC unremarkable, sodium 134, potassium 4.4, chloride 94, bicarbonate 27, BUN 11, creatinine 0.5, glucose 121, calcium 10.5, anion gap 13, LFT unremarkable, troponin 0.31, proBNP 155, albumin 4.6, d-dimer 242 UA positive for nitrites, large leukocyte esterase CXR: Emphysema no acute pulmonary findings EKG: Flattening of T waves Problem list- 1. [place] NSTEMI In 2009, she was found to have anterior ST elevations in V1-V5 with Q waves in V1-V3, as well as reciprocal changes consistent with a subacute anterior ND.An emergent cardiac catheterization disclosed a 95% proximal stenosis of the LAD and 70% ostial stenosis. A stent was placed on her LAD. Her EF was 30% with severe anterior wall hypokinesis. Her post cath echo showed some improvement with an EF of 40%. ECHO in February 2010 showed EF 60%. On admission her trops were elevated (0.31, 1.51, 2.08), ECG-nonspecific ST/T wave changes, LE doppler ruled out DVT. Cardio was consulted-Dr. Engel. She was started on IV Heparin, full dose ASA, atorvastatin 80mg, metoprolol 25mg, lisinopril 5mg, NTG if she has CP. Her Serial Trops remained elevated and ECG showed signs of an infarction. Her Echo showed a EF of 30% with regional wall motion abnormalities which compared to her previous one. She was recommended to have a cardiac cath done as an inpatient, she initially elected to have conservative management and follow up with a cardiac cath as an outpatient. 2. COPD exacerbation She is a former smoker, quit 30 years ago previously smoked 1ppd, hx of emphysema. She requires 2L of oxygen [place] at home. On admission she reported cough with sputum production and required her albuterol inhaler more excessively. Pulmonology-Dr. Gamboa was consulted. She was started on IV ceftriaxone for possible COPD exacerbation, resumed her on her 2L oxygen home dose, administered IV solumedrol, TRC PRN and resumed her other home medications. * CXR showed emphysema, no acute findings. CT chest negative * ABG 7.39 * Changed IV ceftriaxone to ceftin PO for total of 5 days 3. Possible UTI (pos nitrites, esterase, epithelial cells) She had urinary retention which required straight catherization, her UA came back positive for a possible UTI, her renal US was negative for any pathology. * IVF given * BC/UC negative 4. Elevated trop - trending down, elevation most likely due to demand ischemia 5. Hypothyroidism * Continue home meds * TSH/T4 nl 6. History of L breast CA s/p L breast mastectomy Last mammogram in our system was performed 07/26/2013 * CT chest negative for any acute pathology 7. Hip pain She complained of arthritic pain during her stay which was managed with Tylenol and Tramadol. Diet-Diabetic Code-Full Allergies: Coded Allergies: azithromycin (Mild, INTESTINAL BLEEDING 04/09/16) Pertinent Lab Results: 06/09/17-07 CT CHEST WO IV CONTRAST IMPRESSION: 1. Severe emphysema. 2. No focal pneumonia or mass. 3. Stable benign-appearing branching calcification in the right middle lobe, possibly concretions within a distal small airway versus small granulomas. 4. No adenopathy. 5. Moderate coronary artery calcifications. 6. Status post left breast mastectomy and left axillary lymph node resection. Of note, the patient's last mammogram in our system was performed 07/26/2013. If the patient has not had outside imaging of her remaining right breast, recommend screening mammogram of the right breast. 06/09/17 ECHO CONCLUSIONS 1. Moderately decreased EF of 30% with regional wall motion abnormalities as above. Impaired LV relaxation. 2. Trace tricuspid regurgitation. 3. Mild pulmonary hypertension. 06/10/17 US-RENAL/KIDNEY IMPRESSION: Mild fullness right collecting system. A cause for the patient's decreased urine output is not seen. 06/08/17-1621 XRY-PORTABLE CHEST XRAY IMPRESSION: Emphysema. No acute pulmonary findings. Disposition Summary Disposition Principal Diagnosis: NSTEMI Additional Diagnosis: COPD exacerbation Discharge Disposition: home or self care Discharge Instructions General Discharge Information Code Status: Full Code Patient's Diet: Diabetic Patient's Activity: As tolerated Follow-Up Instructions/Appts: Follow up with PCP within 1-2 weeks after discharge Follow up with ophthalmic surgical assistant within 1 week after discharge Follow up with network manager within 1 week after discharge Continue physical therapy at home Medications at Discharge Discharge Medications: Stop taking the following medications: Amitriptyline HCl (Amitriptyline HCl) 150 MG TABLET ORAL Every night Aspirin (Children's Aspirin) 81 MG TAB.CHEW ORAL DAILY Continue taking these medications: Simvastatin (SIMVASTATIN*) 80 MG TABLET 1 Tablet ORAL DAILY Comments: Last Taken:06/11/17 Time:1700 Levothyroxine Sodium (Levoxyl) 88 MCG TABLET 1 Tablet ORAL DAILY Comments: Last Taken:06/12/17 Time:0600 Budesonide/Formoterol Fumarate (Symbicort 160-4.5 Mcg Inhaler) 160 MCG-4.5 MCG/ ACTUATION HFA.AER.AD 2 Puff Inhale through mouth DAILY Comments: Last Taken: 06/12/17 Time: 1000 Cholecalciferol (Vitamin D3) (Vitamin D3) 2,000 UNIT TABLET 1 Tablet ORAL DAILY Comments: Last Taken: 06/12/17 Time: 1000 [place]-3 Fatty Acids (Fish Oil Concentrate) (Unknown Strength) CAPSULE Unknown Dose ORAL DAILY Comments: Last Taken:06/12/17 Time:1000 Metformin HCl (Metformin HCl) 500 MG TABLET 1 Tablet ORAL DAILY Comments: Last Taken: Time:not given in hospital Ubidecarenone (Co Q-10) (Unknown Strength) CAPSULE Unknown Dose ORAL DAILY Comments: Last Taken: Time:not given in hospital Folic Acid (Folic Acid) 1 MG TABLET 1 Tablet ORAL DAILY Comments: Last Taken: 06/12/17 Time: 1000 Alprazolam (Alprazolam) 0.25 MG TABLET 1 Tablet ORAL As Directed Comments: Last Taken: Time:not given in hospital Cyanocobalamin (Vitamin B-12) (B-12 Dots) 500 MCG TABLET 2 Tablet ORAL DAILY Comments: Last Taken: 06/12/17 Time: 1000 Ferrous Sulfate (Ferrous Sulfate) 325 MG (65 MG IRON) TABLET 1 Tablet ORAL DAILY Comments: Last Taken: 06/12/17 Time: 1000 Bioflav,Lemon/Vit Bcomp,C (Lipo-Flavonoid Plus Caplet) 200 MG-100 MG TABLET 2 Capsule ORAL DAILY Comments: Last Taken: Time:not given in hospital Lisinopril (Lisinopril) 5 MG TABLET 1 Tablet ORAL DAILY Qty = 30 Comments: Last Taken:06/12/17 Time:1000 Metoprolol Tartrate (Metoprolol Tartrate) 25 MG TABLET 1 Tablet ORAL TWICE DAILY Comments: Last Taken:06/12/17 Time:1000 Aclidinium [place] (Tudorza Pressair) 400 MCG/ACTUATION AER.POW.BA 2 PUFF Inhale through mouth DAILY Qty = 3 Comments: Last Taken: Time:not given in hospital Albuterol Sulfate (Proair Hfa) 90 MCG HFA.AER.AD 2 Puff Inhale through mouth Q4H as needed for RESPIRATORY Qty = 8 Start taking the following new medications: Amitriptyline HCl (Amitriptyline HCl) 50 MG TABLET 50 Milligram ORAL AT BEDTIME Qty = 30 No Refills Aspirin (Aspirin*) 325 MG TABLET 325 Milligram ORAL DAILY Qty = 30 No Refills Cefuroxime Axetil (Cefuroxime) 250 MG TABLET 250 Milligram ORAL EVERY 12 HOURS Qty = 8 No Refills Copies To: SHEILA CHIN,FABIAN Gore; EDGAR CHIN,LANA Rawls; FRANCESCO CHIN PhD,HERBERT Gore
--- NOTE | 2017-06-11 14:02 | Patient Discharge Instructions ---
Discharge Instructions General Discharge Information You were seen/treated for: NSTEMI UTI COPD exacerbation Special Instructions: Follow up with PCP within 1-2 weeks after discharge Follow up with benchroom shop optician within 1 week after discharge Follow up with cut tobacco bulker within 1 week after discharge Continue physical therapy at home Diet Continue normal diet: Yes Activity Activity Self Limited: Yes Acute Coronary Syndrome Inclusion Criteria At DC or during hospital stay patient has or had the following: ACS DIAGNOSIS Yes Discharge Core Measures Meds if any: Prescribed or Continued at Discharge KHADIJAH/ARB if EF <40% Yes Aspirin Yes Beta-Tanisha Yes Statin Yes Meds if any: NOT Prescribed or Continued at Discharge Congestive Heart Failure Inclusion Criteria At DC or during hospital stay patient has or had the following: CHF DIAGNOSIS No Discharge Core Measures Meds if any: Prescribed or Continued at Discharge Meds if any: NOT Prescribed or Continued at Discharge Cerebrovascular accident Inclusion Criteria At DC or during hospital stay patient has or had the following: CVA/TIA Diagnosis No Discharge Core Measures Meds if any: Prescribed or Continued at Discharge Meds if any: NOT Prescribed or Continued at Discharge Venous thromboembolism Inclusion Criteria VTE Diagnosis No VTE Type NONE VTE Confirmed by (Test) NONE Discharge Core Measures - Per Current guidelines, there needs to be overlap - treatment for the first 5 days of Warfarin therapy. - If discharged on Warfarin prior to 5 days of - overlap therapy, the patient will need to be - assessed for post discharge needs including - *Post discharge parental anticoagulation - *Warfarin and/or parental anticoagulation education - *Follow up date to check INR post discharge At least 5 days overlap therapy as Inpatient No Meds if any: Prescribed or Continued at Discharge Note: Overlap Therapy is Warfarin and Anticoagulant Meds if any: NOT Prescribed or Continued at Discharge
[2017-06-11 14:44] VITALS: BP 118/56
[2017-06-11] MEDS ORDERED: AMITRIPTYLINE H50 M2 PO (15:38)
[2017-06-11] MEDS ORDERED: CEFUROXIME250 M1 PO (15:38)
[2017-06-11] MEDS ORDERED: ASPIRIN325 M2 PO (15:38)
--- NOTE | 2017-06-11 18:13 | PN- Cardiology ---
Subjective Subjective: * Carolina denies any chest discomfort. She is more alert than yesterday. She does not want to go home. * sinus rhythm * A cardiac catheterization was discussed this morning and the patient did not want this procedure. Her family who I spoke with this evening does want the procedure. Objective Vital Signs and I&Os Vital Signs Date Time Temp Pulse Resp B/P B/P Pulse O2 O2 Flow FiO2 Mean Ox Delivery Rate 06/11 1444 97.5 75 20 118/56 95 Nasal 3.0L Cannula 06/11 1010 74 110/52 06/11 1010 74 110/52 06/11 0849 94 Nasal 3.0L Cannula 06/11 0640 98.0 74 18 100/60 92 Nasal 3.0L Cannula 06/11 0000 Nasal 3.0L Cannula 06/10 2218 98.7 64 18 100/54 95 06/10 2054 88 118/68 Intake & Output 06/11 1600 06/11 0800 06/11 0000 06/10 1600 06/10 0800 06/10 0000 Intake Total 50 600 120 854 Output Total 300 300 400 Balance -250 600 -180 454 Intake, IV 120 120 704 Intake, Oral 50 480 0 150 Number 0 0 0 Bowel Movements Output, Urine 300 300 400 Patient 120 lb Weight Physical Exam: General: WD/ WN female in NAD; lethargic Neck: no JVD, no carotid bruit Heart: RRR w/o murmur Lungs: clear bilaterally with decreased air movement Chest: left mastectomy Extremities: no edema Assessment/Plan Assessment/Plan * Carolina is pain free with decreasing cardiac enzymes. We will pursue a cardiac catheterization as an outpatient early next week. I suspect that she has demand ischemia related to respiratory distress and decreased oxygen saturation noted at the time of her admission. She does have some known branch disease consisting of a small diagonal with a 70% ostial stenosis. This is unlikely to be a life threatening lesion and is unlikely to be amenable to percutaneous revascularization. * Stop heparin. Continue aspirin at 324mg daily. Also continue her statin and small dose of beta milind and ACEI. Continue telemetry? Yes
[2017-06-11 22:00] VITALS: BP 126/50
[2017-06-12 07:15] VITALS: BP 164/76
--- NOTE | 2017-06-12 08:32 | PN- Housestaff ---
KHANG LOPEZ 06/12/17 0831: Subjective Follow-up For: nSTEMI UTI Complaints: pain scale (0-10) Tele-Events Since Last Visit: Patient is in sinus rhythm Subjective: Patient was seen and examined this morning. She is alert awake and oriented to time place and person. No acute events noticed overnight. She denies any urinary frequency, urgency, dysuria. She was able to void herself. Denies any fever, chills. Denies any chest pain, palpitations, short of breath Vitals were stable. She is willing to go home today Review of Systems Constitutional: Reports: see HPI. Objective Last 24 Hrs of Vital Signs/I&O Vital Signs Date Time Temp Pulse Resp B/P B/P Pulse O2 O2 Flow FiO2 Mean Ox Delivery Rate 06/12 0715 98.3 92 22 164/76 94 Nasal 3.0L Cannula 06/12 0645 98 Nasal 4.0L Cannula 06/12 0000 Nasal 4.0L Cannula 06/11 2200 98.9 91 22 126/50 93 Nasal 4.0L Cannula 06/11 2123 91 126/50 06/11 2102 94 Nasal 3.0L Cannula 06/11 1600 Nasal 4.0L Cannula 06/11 1444 97.5 75 20 118/56 95 Nasal 3.0L Cannula 06/11 1010 74 110/52 06/11 1010 74 110/52 Intake & Output 06/12 1600 06/12 0800 06/12 0000 Intake Total 340 480 Output Total 550 800 Balance -210 -320 Intake, IV 100 Intake, Oral 240 480 Number 1 1 Bowel Movements Output, Urine 550 800 Physical Exam General Appearance: Alert, Oriented X3, Cooperative, No Acute Distress Skin: No Rashes, No Breakdown HEENT: Atraumatic, PERRLA Cardiovascular: Normal S1, Normal S2 Lungs: Normal Air Movement Abdomen: Normal Bowel Sounds, Soft, No Tenderness Vascular: Normal Pulses Current Medications: Current Medications Sig/Amari Start time Last Medication Dose Route Stop Time Status Admin Acetaminophen 1,000 MG ONCE ONE 06/12 0200 DC 06/12 N/A 1 UNIT IV 06/12 0214 0214 Acetaminophen 650 MG Q6 06/08 2359 AC 06/11 PO 2357 Albuterol Sulfate 3 ML Q4P PRN 06/09 1830 AC 06/12 INH 0644 Alprazolam 0.25 MG DAILY PRN 06/08 2230 DC 06/10 PO 06/15 2229 0039 Amitriptyline HCl 50 MG AT BEDTIME 06/11 2200 AC 06/11 PO 2123 Amitriptyline HCl 100 MG AT BEDTIME 06/10 2200 DC 06/10 PO 2055 Aspirin 325 MG DAILY 06/10 1000 AC 06/11 PO 1013 Atorvastatin Calcium 80 MG 1700 06/09 1700 AC 06/11 PO 1835 Bisacodyl 10 MG ONCE ONE 06/11 1830 DC 06/11 DE 06/11 1831 1956 Budesonide/ 2 PUF 2200 06/09 2200 AC 06/11 Formoterol Fumarate INH 2127 Cefuroxime Sodium 250 MG Q12 06/10 2200 AC 06/11 PO 06/15 1001 2123 Cholecalciferol 1,000 IU DAILY 06/09 1000 AC 06/11 PO 1008 Cyanocobalamin 1,000 MCG DAILY 06/09 1000 AC 06/11 PO 1008 Docusate Sodium 100 MG DAILY NEEDED PRN 06/10 1430 AC 06/10 PO 2054 Ferrous Sulfate 325 MG DAILY 06/09 1000 AC 06/11 PO 1010 Folic Acid 1 MG DAILY 06/09 1000 AC 06/11 PO 1010 Guaifenesin 600 MG Q12 06/09 1000 AC 06/11 PO 2123 Insulin Aspart 0 TIDAC 06/11 1700 AC SC Levothyroxine Sodium 0.088 MG DAILY AC 06/09 0700 AC 06/12 PO 0624 Lisinopril 5 MG DAILY 06/09 1000 AC 06/11 PO 1010 Metoprolol Tartrate 25 MG BID 06/08 2200 AC 06/11 PO 2123 Polyethylene Glycol 17 GM DAILY PRN 06/10 1430 AC 06/11 PO 1011 Senna 187 MG AT BEDTIME PRN 06/10 1430 AC PO Sodium Chloride 1,000 ML BOLUS ONE 06/11 0945 DC 06/11 IV 06/11 1044 1007 Tiotropium [place] 1 PUF DAILY 06/09 1000 AC 06/11 INH 1010 Tramadol HCl 50 MG Q6 PRN 06/10 1300 DC 06/10 PO 1307 Last 24 Hrs of Lab/Sae Results Last 24 Hrs of Labs/Mics: Laboratory Tests 06/12/17 0640: Anion Gap 12, Estimated GFR > 60, BUN/Creatinine Ratio 24.0 Assessment/Plan Assessment: Ms. Murray is an 82 yo F with a PMH significant for CAD s/p stent placement for a anterior wall MA on asa 81mg, COPD on 2L oxygen [place], DM on metformin, HTN on metoprolol 25mg and simvastatin 80mg, hypothroidism on levothyroxine, L breast CA s/p mastectomy, and arthritis. Presented to the ED with SOB and cough with green sputum production. She noticed that she required her albuterol inhaler more often at the time. She denied any chest pain, nausea, vomiting, abdominal pain, diarrhea, sweating, palpitation or dizziness. 1. NSTEMI In 2009, she was found to have anterior ST elevations in V1-V5 with Q waves in V1-V3, as well as reciprocal changes consistent with a subacute anterior MA.An emergent cardiac catheterization disclosed a 95% proximal stenosis of the LAD and 70% ostial stenosis. A stent was placed on her LAD. Her EF was 30% with severe anterior wall hypokinesis. Her post cath echo showed some improvement with an EF of 40%. ECHO in February 2010 showed EF 60%. On admission her trops were elevated (0.31, 1.51, 2.08), ECG-nonspecific ST/T wave changes, LE doppler ruled out DVT. * Cardio consulted-Dr. Engel * Possible cardiac cath as an outpatient over next week * ECHO revealed EF 30% with regional wall abnormalities and mild pulmonary HTN * Continue full dose ASA, atorvastatin 80mg, metoprolol 25mg, lisinopril 5mg * NTG if she has CP * Discontinued heparin 2. COPD exacerbation She is a former smoker, quit 30 years ago previously smoked 1ppd, hx of emphysema. She requires 2L of oxygen [place] at home. On admission she reported cough with sputum production and required her albuterol inhaler more excessively. * CXR showed emphysema, no acute findings * ABG 7.39/43/26 * Continue TRC 3. UTI (pos nitrites, esterase, epithelial cells), decreased urine output Renal US negative for cause of possible urinary retention * BC/UCneg so far * Changed IV ceftriaxone to ceftin 250mg q12 PO day3 4. Elevated trop - trendeddown, elevation most likely due to demand ischemia 5. Hypothyroidism * Continue home meds * TSH/T4 nl 6. History of L breast CA s/p L breast mastectomy Last mammogram in our system was performed 07/26/2013 Diet-CC3 Code:Full Problem List: 1. COPD Pain Ratin Pain Location: n/a Pain Goal: Remain pain free Pain Plan: dajuaninol Tomorrow's Labs & Rationales: none OSMANI AGN MD 06/12/17 2357: Attending MD Review Statement Attending Statement Attending MD Statement: examined this patient, discuss w/resident/PA/COMMUNITY LIVING SPECIALIST, agreed w/resident/PA/COMMUNITY LIVING SPECIALIST, discussed with nursing, amended to note Attending Assessment/Plan: The patient was seen and discussed with house staff. Agree with the plan of care as outlined. OK to discharge to rehab today.
--- NOTE | 2017-06-12 08:48 | PN- Pulmonary ---
Subjective HPI/Critical Care Issues: Patient is awake and conversant Objective Current Medications: Current Medications Sig/Amari Start time Last Medication Dose Route Stop Time Status Admin Acetaminophen 1,000 MG ONCE ONE 06/12 0200 DC 06/12 N/A 1 UNIT IV 06/12 0214 0214 Acetaminophen 650 MG Q6 06/08 2359 AC 06/11 PO 2357 Albuterol Sulfate 3 ML Q4P PRN 06/09 1830 AC 06/12 INH 0644 Alprazolam 0.25 MG DAILY PRN 06/08 2230 DC 06/10 PO 06/15 2229 0039 Amitriptyline HCl 50 MG AT BEDTIME 06/11 2200 AC 06/11 PO 2123 Amitriptyline HCl 100 MG AT BEDTIME 06/10 2200 DC 06/10 PO 2055 Aspirin 325 MG DAILY 06/10 1000 AC 06/11 PO 1013 Atorvastatin Calcium 80 MG 1700 06/09 1700 AC 06/11 PO 1835 Bisacodyl 10 MG ONCE ONE 06/11 1830 DC 06/11 ID 06/11 1831 1956 Budesonide/ 2 PUF 2200 06/09 2200 AC 06/11 Formoterol Fumarate INH 2127 Cefuroxime Sodium 250 MG Q12 06/10 2200 AC 06/11 PO 06/15 1001 2123 Cholecalciferol 1,000 IU DAILY 06/09 1000 AC 06/11 PO 1008 Cyanocobalamin 1,000 MCG DAILY 06/09 1000 AC 06/11 PO 1008 Docusate Sodium 100 MG DAILY NEEDED PRN 06/10 1430 AC 06/10 PO 205 Ferrous Sulfate 325 MG DAILY 06/09 1000 AC 06/11 PO 1010 Folic Acid 1 MG DAILY 06/09 1000 AC 06/11 PO 1010 Guaifenesin 600 MG Q12 06/09 1000 AC 06/11 PO 2123 Insulin Aspart 0 TIDAC 06/11 1700 AC SC Levothyroxine Sodium 0.088 MG DAILY AC 06/09 0700 AC 06/12 PO 24 Lisinopril 5 MG DAILY 06/09 1000 AC 06/11 PO 1010 Metoprolol Tartrate 25 MG BID 06/08 2200 AC 06/11 PO 2123 Polyethylene Glycol 17 GM DAILY PRN 06/10 1430 AC 06/11 PO 1011 Senna 187 MG AT BEDTIME PRN 06/10 1430 AC PO Sodium Chloride 1,000 ML BOLUS ONE 06/11 0945 DC 06/11 IV 06/11 1044 1007 Tiotropium [place] 1 PUF DAILY 06/09 1000 AC 06/11 INH 1010 Tramadol HCl 50 MG Q6 PRN 06/10 1300 DC 06/10 PO 1307 Vital Signs & I&O Last 24 Hrs of Vitals and I&O: Vital Signs Date Time Temp Pulse Resp B/P B/P Pulse O2 O2 Flow FiO2 Mean Ox Delivery Rate 06/12 0715 98.3 92 22 164/76 94 Nasal 3.0L Cannula 06/12 0645 98 Nasal 4.0L Cannula 06/12 0000 Nasal 4.0L Cannula 06/11 2200 98.9 91 22 126/50 93 Nasal 4.0L Cannula 06/11 2123 91 126/50 06/11 2102 94 Nasal 3.0L Cannula 06/11 1600 Nasal 4.0L Cannula 06/11 1444 97.5 75 20 118/56 95 Nasal 3.0L Cannula 06/11 1010 74 110/52 06/11 1010 74 110/52 06/11 0849 94 Nasal 3.0L Cannula Intake & Output 06/12 1600 06/12 0800 06/12 0000 Intake Total 340 480 Output Total 550 800 Balance -210 -320 Intake, IV 100 Intake, Oral 240 480 Number 1 1 Bowel Movements Output, Urine 550 800 Since saturation 3 L 94% exam for chest shows diminished breath sounds are no wheezes cardiac exam shows a regular S1 and S2 without murmurs Impression/Plan Impression/Plan Impression/Plan: 82-year-old with severe COPD coronary artery disease admitted with lethargy secondary to polypharmacy. Mental status appears improved Recommendations: Continue treatment plan as outlined by Danny Gamboa MD. Taper FiO2 his saturations allow. 2 new to hold narcotics.
[2017-06-12 15:28] VITALS: BP 140/60
--- NOTE | 2017-06-12 16:50 | PN- Cardiology ---
Subjective Subjective: * No complaints of chest discomfort or shortness of breath. * sinus rhythm Objective Vital Signs and I&Os Vital Signs Date Time Temp Pulse Resp B/P B/P Pulse O2 O2 Flow FiO2 Mean Ox Delivery Rate 06/12 1528 98.2 89 22 140/60 94 Nasal Cannula 06/12 1437 95 Nasal 3.0L Cannula 06/12 1021 92 164/76 06/12 1019 92 164/76 06/12 0715 98.3 92 22 164/76 94 Nasal 3.0L Cannula 06/12 0645 98 Nasal 4.0L Cannula 06/12 0000 Nasal 4.0L Cannula 06/11 2200 98.9 91 22 126/50 93 Nasal 4.0L Cannula 06/11 2123 91 126/50 06/11 2102 94 Nasal 3.0L Cannula Intake & Output 06/12 1600 06/12 0800 06/12 0000 06/11 1600 06/11 0800 06/11 0000 Intake Total 340 480 200 50 600 Output Total 550 700 250 300 Balance -210 -220 -50 -250 600 Intake, IV 100 120 Intake, Oral 240 480 200 50 480 Number 1 1 0 Bowel Movements Output, Urine 550 700 250 300 Patient 120 lb Weight Physical Exam: General: WD/ WN female in NAD; lethargic Neck: no JVD, no carotid bruit Heart: RRR w/o murmur Lungs: clear bilaterally with decreased air movement Chest: left mastectomy Extremities: no edema Assessment/Plan Assessment/Plan * Carolina is pain free with decreasing cardiac enzymes. We will pursue a cardiac catheterization as an outpatient early next week. I suspect that she has demand ischemia related to respiratory distress and decreased oxygen saturation noted at the time of her admission. She does have some known branch disease consisting of a small diagonal with a 70% ostial stenosis. This is unlikely to be a life threatening lesion and is unlikely to be amenable to percutaneous revascularization. * Stop heparin. Continue aspirin at 324mg daily. Also continue her statin and small dose of beta milind and ACEI. Continue telemetry? No
--- NOTE | 2017-06-12 18:24 | NUR ---
PATIENT ASSESSED FOR SKIN ALTERATIONS, MEDICATION INSTRUCTIONS AND AFTERCARE PLAN. PATIENT AND FAMILY ACKNOWLEDGE UNDERSTANDING OF PLAN. PATIENT TRANSPORTED VIA WHEELCHAIR TO MAIN ENTRANCE AND DISCHARGED WITHOUT INCIDENT.
== END 2017-06-12 17:25 | disposition home health service (06) | DRG 280 ==
LOC: ERH 15:19 → 1NO 17:45 → ERHI 17:45 → 1NO 17:45 → ENTRNSPT 20:42 → 1NO 21:14 → CMPTRNSPT 21:32 → 1NO 06-10 02:51
PROVIDERS: Emergency Medicine; Internal Medicine; Physician Assistant Medical; Student in an Organized Health Care Education/Training Program; ADMIT Internal Medicine
DX: I21.4 Non-ST elevation (NSTEMI) myocardial infarction (principal); J96.21 Acute and chronic respiratory failure with hypoxia; I27.2 Other secondary pulmonary hypertension; J44.1 Chronic obstructive pulmonary disease with (acute) exacerbation; N39.0 Urinary tract infection, site not specified; Z99.81 Dependence on supplemental oxygen; E11.9 Type 2 diabetes mellitus without complications; I10 Essential (primary) hypertension; I25.10 Atherosclerotic heart disease of native coronary artery without angina pectoris; Z79.84 Long term (current) use of oral hypoglycemic drugs; E03.9 Hypothyroidism, unspecified; Z85.3 Personal history of malignant neoplasm of breast; F41.9 Anxiety disorder, unspecified; M16.11 Unilateral primary osteoarthritis, right hip; F32.9 Major depressive disorder, single episode, unspecified; E78.5 Hyperlipidemia, unspecified; I25.2 Old myocardial infarction; R91.8 Other nonspecific abnormal finding of lung field; Z87.891 Personal history of nicotine dependence
CPT/HCPCS: 1NP; 1NSP; 36415; 76775; 81001; 82436; 87040; 87070; 87086; 87449; 87450; 93005; 93010; 93306; 93970; 97161-GP; 97530-GO; J0131; J0696; J1644; J3490

== ENCOUNTER 2018-02-08 13:39 | Emergency (ER) | payer OTHER ==
[~2018-02-08] VITALS: Ht 160 cm; Wt 56.7 kg
[~2018-02-08 13:39] MED LIST changes: +ALPRAZOLAM0.25 M1 PO; +AMITRIPTYLINE H50 M2 PO; +ASPIRIN325 M2 PO; +B-12 DOTS500 MCG PO; +CEFUROXIME250 M1 PO; +FERROUS SULFAT325 M3 PO; +LIPO-FLAVONOID1 EACH PO; +LISINOPRIL5 M1 PO; +PROAIR HFA8.5 GM INH; +TUDORZA PRESS400 MCG INH
--- NOTE | 2018-02-08 16:10 | ED GENERAL ADULT ---
History of Present Illness General Chief Complaint: General Adult Stated Complaint: PT IS HERE FOR A POSSIBLE UTI Source: patient Exam Limitations: no limitations Vital Signs & Intake/Output Vital Signs & Intake/Output Vital Signs Date Time Temp Pulse Resp B/P B/P Pulse O2 O2 Flow FiO2 Mean Ox Delivery Rate 02/08 2001 97.8 71 18 126/66 97 Nasal 2.0L Cannula 02/08 1640 96 Room Air 02/08 1413 98.1 73 22 111/73 96 Nasal 2.0L Cannula Allergies Coded Allergies: azithromycin (Mild, INTESTINAL BLEEDING 04/09/16) Reconcile Medications Aclidinium [place] (Tudorza Pressair) 400 MCG/ACTUATION AER.POW.BA 2 PUFF INH DAILY RESPIRATORY (Reported) Albuterol Sulfate (Proair Hfa) 90 MCG HFA.AER.AD 2 PUF INH Q4H PRN RESPIRATORY (Reported) Alprazolam 0.25 MG TABLET 1 TAB PO AD ANXIETY (Reported) Amitriptyline HCl 50 MG TABLET 50 MG PO AT BEDTIME insomnia Aspirin (Aspirin*) 325 MG TABLET 325 MG PO DAILY [employer] Bioflav,Lemon/Vit Bcomp,C (Lipo-Flavonoid Plus Caplet) 200 MG-100 MG TABLET 2 CAP PO DAILY SUPPLEMENT (Reported) Budesonide/Formoterol Fumarate (Symbicort 160-4.5 Mcg Inhaler) 160 MCG-4.5 MCG/ ACTUATION HFA.AER.AD 2 PUF INH DAILY RESPIRATORY (Reported) Cefuroxime Axetil (Cefuroxime) 250 MG TABLET 250 MG PO Q12 uti Cholecalciferol (Vitamin D3) (Vitamin D3) 2,000 UNIT TABLET 1 TAB PO DAILY SUPPLEMENT (Reported) Cyanocobalamin (Vitamin B-12) (B-12 Dots) 500 MCG TABLET 2 TAB PO DAILY SUPPLEMENT (Reported) Ferrous Sulfate 325 MG (65 MG IRON) TABLET 1 TAB PO DAILY SUPPLEMENT ( Reported) Folic Acid 1 MG TABLET 1 TAB PO DAILY SUPPLEMENT (Reported) Levothyroxine Sodium (Levoxyl) 88 MCG TABLET 1 TAB PO DAILY THYROID (Reported ) Lisinopril 5 MG TABLET 1 TAB PO DAILY HEART/BP (Reported) Metformin HCl 500 MG TABLET 1 TAB PO DAILY DM (Reported) Metoprolol Tartrate 25 MG TABLET 1 TAB PO BID HEART/BP (Reported) [place]-3 Fatty Acids (Fish Oil Concentrate) (Unknown Strength) CAPSULE (Unknown Dose) PO DAILY SUPPLEMENT (Reported) Simvastatin (SIMVASTATIN*) 80 MG TABLET 1 TAB PO DAILY CHOLESTEROL (Reported) Ubidecarenone (Co Q-10) (Unknown Strength) CAPSULE (Unknown Dose) PO DAILY SUPPLEMENT (Reported) Triage Note: PT TO ED WITH C/O "I CAN'T PEE VERY MUCH, MAYBE I HAVE A BLADDER INFECTION". AFEBRILE IN TRIAGE. Triage Nurses Notes Reviewed? yes Onset: Gradual Duration: day(s): (2) Timing: remote history Injury Environment: home Severity: moderate Severity Numbers: 6 No Modifying Factors: none HPI: Patient is an 82-year-old female presenting to the emergency department with family members with chief complaint of urinary retention, urgency and dysuria this been going on for 2 days. Patient reports that she feels pressure in her pelvic region and feels like she has used the bathroom but nothing coming out. She's been able to squeeze a few dribbles out per patient but nothing significant. Denies any nausea or vomiting. No fevers or chills. No change in appetite. History of similar symptoms in the past which required a Gant. Her anticholinergic medication did decrease in dose. Patient denying any chest pain palpitations or shortness of breath. (Gilda Dai) Past History Travel History Traveled to [place] past 21 day No Medical History Any Pertinent Medical History? 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 No (Gilda Dai) Review of Systems Review of Systems Constitutional: Reports: no symptoms. Comments Review of systems: See HPI, All other systems negative. Constitutional, no chills fever or weight loss HEENT: No visual changes no sore throat no congestion Cardiovascular: No chest pain ,palpitation , orthopnea or ankle swelling Skin, no jaundice no rashes Respiratory: No dyspnea cough sputum or hemoptysis GI: no vomiting : No hematuria Muscle skeletal: no back pain, no neck pain, Neurologic: No numbness no confusion NO HEADACHES Psych: No stress anxiety or depression,. Heme/endocrine: No bruising no bleeding no polyuria or polydipsia Immunology: No splenectomy or history of AIDS (Gilda Dai) Physical Exam Physical Exam General Appearance: well developed/nourished, no apparent distress, alert, awake , comfortable Comments: Well-developed well-nourished person in no acute distress HEENT: Atraumatic, normocephalic. Neck: NORMAL INSPECTION Back: Nontender, no CVA tenderness. Cardiovascular: Regular rate and rhythms Respiratory: No respiratory distress.breath sounds slightly diminished to auscultation bilaterally, patient wearing nasal cannula. Abdomen: Soft, nontender nondistended, no appreciable organomegaly. Normal bowel sounds. No ascites, no rebound or guarding. Extremity: No edema Neuro: Alert oriented x3 Skin: No appreciable rash on exposed skin, skin is warm and dry. Psych: Mood and affect is normal, memory and judgment is normal. Core Measures ACS in differential dx? No CVA/TIA Diagnosis: No Sepsis Present: No Sepsis Focused Exam Completed? No (Gilda Dai) Progress Differential Diagnoses I considered the following diagnoses in my evaluation of the patient: med reaction, uti, bladder ca, ureteral stricture, kidney stone Plan of Care: Orders Procedure Date/time Status COMPREHENSIVE METABOLIC PANEL 02/08 1646 Complete CBC WITHOUT DIFFERENTIAL 02/08 1646 Complete CULTURE,URINE 02/08 1555 Active URINALYSIS 02/08 1555 Complete Laboratory Tests 02/08/18 1829: Anion Gap 11, Estimated GFR > 60, BUN/Creatinine Ratio 22.0, Glucose 108 H, Calcium 10.4 H, Total Bilirubin 0.5, AST 15, ALT 18, Alkaline Phosphatase 52, Total Protein 6.6, Albumin 3.8, Globulin 2.8, Albumin/Globulin Ratio 1.4, CBC w Diff NO MAN DIFF REQ, RBC 3.80 L, MCV 94.8, MCH 31.5 H, MCHC 33.3, RDW 12.9, MPV 8.2, Gran % 58.5, Lymphocytes % 32.3, Monocytes % 6.3, Eosinophils % 2.3, Basophils % 0.6, Absolute Granulocytes 5.2, Absolute Lymphocytes 2.8, Absolute Monocytes 0.6, Absolute Eosinophils 0.2, Absolute Basophils 0.1 02/08/18 1620: Urine Color YEL, Urine Clarity CLEAR, Urine pH 6.5, Ur Specific Robbins 1.010, Urine Protein NEG, Urine Ketones NEG, Urine Nitrite NEG, Urine Bilirubin NEG, Urine Urobilinogen 0.2, Ur Leukocyte Esterase NEG, Ur Microscopic EXAM NOT REQUIRED, Urine Hemoglobin NEG, Urine Glucose NEG Microbiology 02/09 1620 URINE ROUT: Urine Culture - RECD Diagnostic Imaging: Viewed by Me: CT Scan. Discussed w/RAD: CT Scan. Radiology Impression: PATIENT: BENNIE KOLB PRESENT AGE: 82 PATIENT ACCOUNT NO: [id number] : 37 LOCATION: [facility] ORDERING PHYSICIAN: Gilda AGUILERA SERVICE DATE: 02/08/18 EXAM TYPE: CAT - CT ABD & PELVIS W/O IV CONTRAS CT ABDOMEN AND PELVIS WITHOUT IV CONTRAST CLINICAL INFORMATION: Urinary retention. COMPARISON: Renal ultrasound 06/10/2017. Abdominal CT 06/15/2014. TECHNIQUE: Multidetector volumetric imaging was performed from the superior aspect of the liver through the pubic symphysis. Sagittal and coronal reformatted images were obtained on the technologist's workstation. FINDINGS: There is centrilobular emphysema at the lung bases which are clear. Limited evaluation of the unenhanced liver, spleen, adrenal glands, gallbladder, and pancreas reveals no definite abnormality. The kidneys are symmetric in size without evidence of hydronephrosis or nephrolithiasis. Moderate volume intracolonic stool. Sigmoid diverticulosis without evidence of acute diverticulitis. The large and small bowel are normal in caliber without evidence of mechanical obstruction. No focal inflammatory changes adjacent to the large or the small bowel. The appendix is normal. There is no free air and there is no intra-abdominal free fluid. No mesenteric or retroperitoneal adenopathy. There is extensive aortoiliac atherosclerotic calcification. Infrarenal abdominal aortic ectasia without a true aneurysm. The bladder is decompressed with a Gant catheter in place. There is nondependent gas within the bladder, not unexpected in this setting. Degenerative calcified fibroid within the retroverted uterus. No pelvic adenopathy. No free fluid within the pelvis. There are no acute osseous abnormalities. Severe degenerative changes involving the right greater than left femoroacetabular joint. No significant soft tissue abnormality. IMPRESSION: - The bladder is decompressed with a Gant catheter in place. No definite structural explanation for urinary retention is identified. There are no radiopaque calculi and there is no hydroureteronephrosis. - Sigmoid diverticulosis without acute diverticulitis. Moderate volume intracolonic stool. - Severe degenerative changes involving the right greater than left femoroacetabular joint. DICTATED BY: Martín Can MD DATE/TIME DICTATED:02/08/182027 COLD MEAT COOK:SANTOS DATE/TIME TRANSCRIBED:02/08/182027 CONFIDENTIAL, DO NOT COPY WITHOUT APPROPRIATE AUTHORIZATION. <Electronically signed in Other Vendor System> Initial ED EKG: none Comments: Patient informed of all lab work results and imaging study results. Patient feels better now that Gant is in. Did not feel bloated any longer. No signs of urinary tract infection. No signs of kidney stone on CT scan. No signs of mass. Patient will follow-up with urology for further evaluation. Discussed Dr. kathleen and he agrees with plan. Patient nontoxic. (Gilda Dai) Departure Departure Time of Disposition: 2123 Disposition: HOME OR SELF CARE Condition: Stable Clinical Impression Primary Impression: Urinary retention Referrals: Curly Neville MD (PCP/Family) Atif Hall MD Additional Instructions: Follow-up with urology tomorrow, call to make an appointment. Keep Gant in until follow-up. Increase fluids. Return for worsening symptoms or concerns. Departure Forms: Customer Survey General Discharge Information (Gilda Dai) PA/PHARMACEUTICAL ENGINEER Co-Sign Statement Statement: ED Attending supervision documentation- [x] I saw and evaluated the patient. I have also reviewed all the pertinent lab results and diagnostic results. I agree with the findings and the plan of care as documented in the PA's/PHARMACEUTICAL ENGINEER's documentation. [] I have reviewed the ED Record and agree with the PA's/PHARMACEUTICAL ENGINEER's documentation. [] Additions or exceptions (if any) to the PAs/PHARMACEUTICAL ENGINEER's note and plan are summarized below: [] (Martín Fong DO) Critical Care Note Critical Care Note Critical Care Time: non-applicable (Juan AGUILERA,Gilda)
[2018-02-08 18:40] LABS: ABSOLUTE BASOPHIL COUNT 0.1 /CUMM (0.0-0.2); ABSOLUTE EOSINOPHIL COUNT 0.2 /CUMM (0.0-0.7); ABSOLUTE GRANULOCYTE CT 5.2 /CUMM (1.4-6.5); ABSOLUTE LYMPH COUNT 2.8 /CUMM (1.2-3.4); ABSOLUTE MONOCYTE COUNT 0.6 /CUMM (0.10-0.60); BASOPHIL % 0.6 % (0.0-2.0); EOSINOPHIL % 2.3 % (0-5); GRANULOCYTE % 58.5 % (42.2-75.2); MEAN CORPUSCULAR HGB 31.5 PG (27.0-31.0); MEAN CORPUSCULAR HGB CONC 33.3 G/DL (33.0-37.0); MEAN CORPUSCULAR VOLUME 94.8 FL (81.0-99.0); MEAN PLATELET VOLUME 8.2 FL (7.4-10.4); PLATELET COUNT 229 /CUMM (130-400); RBC DISTRIBUTION WIDTH 12.9 % (11.5-14.5); WHITE BLOOD CELL COUNT 8.8 /CUMM (4.8-10.8)
[2018-02-08 20:01] VITALS: BP 126/66
--- NOTE | 2018-02-08 20:52 | CT SCAN REPORT ---
CT ABDOMEN AND PELVIS WITHOUT IV CONTRAST CLINICAL INFORMATION: Urinary retention. COMPARISON: Renal ultrasound 06/10/2017. Abdominal CT 06/15/2014. TECHNIQUE: Multidetector volumetric imaging was performed from the superior aspect of the liver through the pubic symphysis. Sagittal and coronal reformatted images were obtained on the technologist's workstation. FINDINGS: There is centrilobular emphysema at the lung bases which are clear. Limited evaluation of the unenhanced liver, spleen, adrenal glands, gallbladder, and pancreas reveals no definite abnormality. The kidneys are symmetric in size without evidence of hydronephrosis or nephrolithiasis. Moderate volume intracolonic stool. Sigmoid diverticulosis without evidence of acute diverticulitis. The large and small bowel are normal in caliber without evidence of mechanical obstruction. No focal inflammatory changes adjacent to the large or the small bowel. The appendix is normal. There is no free air and there is no intra-abdominal free fluid. No mesenteric or retroperitoneal adenopathy. There is extensive aortoiliac atherosclerotic calcification. Infrarenal abdominal aortic ectasia without a true aneurysm. The bladder is decompressed with a Gant catheter in place. There is nondependent gas within the bladder, not unexpected in this setting. Degenerative calcified fibroid within the retroverted uterus. No pelvic adenopathy. No free fluid within the pelvis. There are no acute osseous abnormalities. Severe degenerative changes involving the right greater than left femoroacetabular joint. No significant soft tissue abnormality. IMPRESSION: - The bladder is decompressed with a Gant catheter in place. No definite structural explanation for urinary retention is identified. There are no radiopaque calculi and there is no hydroureteronephrosis. - Sigmoid diverticulosis without acute diverticulitis. Moderate volume intracolonic stool. - Severe degenerative changes involving the right greater than left femoroacetabular joint.
== END 2018-02-08 21:47 ==
LOC: ERH 13:39
PROVIDERS: Physician Assistant
DX: R33.9 Retention of urine, unspecified (principal)
CPT/HCPCS: 74176; 81003; 87086

== ENCOUNTER 2018-07-18 05:27 | Emergency (ER) | payer OTHER ==
[~2018-07-18] VITALS: Ht 162.6 cm; Wt 63.5 kg
--- NOTE | 2018-07-18 05:31 | ED GENERAL ADULT ---
History of Present Illness General Chief Complaint: Lower Extremity Problems Stated Complaint: RT LEG PAIN HX DEMENTIA Source: patient Exam Limitations: dementia Vital Signs & Intake/Output Vital Signs & Intake/Output Vital Signs Date Time Temp Pulse Resp B/P B/P Pulse O2 O2 Flow FiO2 Mean Ox Delivery Rate 07/18 0643 98.5 89 18 134/90 98 Nasal Cannula 07/18 0540 98 Nasal 2.0L Cannula 07/18 0532 98.8 95 18 143/68 96 Nasal 2.0L Cannula Allergies Coded Allergies: azithromycin (Mild, INTESTINAL BLEEDING 04/09/16) Reconcile Medications Aclidinium [place] (Tudorza Pressair) 400 MCG/ACTUATION AER.POW.BA 2 PUFF INH DAILY RESPIRATORY (Reported) Albuterol Sulfate (Proair Hfa) 90 MCG HFA.AER.AD 2 PUF INH Q4H PRN RESPIRATORY (Reported) Alprazolam 0.25 MG TABLET 1 TAB PO AD ANXIETY (Reported) Amitriptyline HCl 50 MG TABLET 50 MG PO AT BEDTIME insomnia Aspirin (Aspirin*) 325 MG TABLET 325 MG PO DAILY heart health Bioflav,Lemon/Vit Bcomp,C (Lipo-Flavonoid Plus Caplet) 200 MG-100 MG TABLET 2 CAP PO DAILY SUPPLEMENT (Reported) Budesonide/Formoterol Fumarate (Symbicort 160-4.5 Mcg Inhaler) 160 MCG-4.5 MCG/ ACTUATION HFA.AER.AD 2 PUF INH DAILY RESPIRATORY (Reported) Cefuroxime Axetil (Cefuroxime) 250 MG TABLET 250 MG PO Q12 uti Cholecalciferol (Vitamin D3) (Vitamin D3) 2,000 UNIT TABLET 1 TAB PO DAILY SUPPLEMENT (Reported) Cyanocobalamin (Vitamin B-12) (B-12 Dots) 500 MCG TABLET 2 TAB PO DAILY SUPPLEMENT (Reported) Ferrous Sulfate 325 MG (65 MG IRON) TABLET 1 TAB PO DAILY SUPPLEMENT ( Reported) Folic Acid 1 MG TABLET 1 TAB PO DAILY SUPPLEMENT (Reported) Levothyroxine Sodium (Levoxyl) 88 MCG TABLET 1 TAB PO DAILY THYROID (Reported ) Lisinopril 5 MG TABLET 1 TAB PO DAILY HEART/BP (Reported) Metformin HCl 500 MG TABLET 1 TAB PO DAILY DM (Reported) Metoprolol Tartrate 25 MG TABLET 1 TAB PO BID HEART/BP (Reported) [place]-3 Fatty Acids (Fish Oil Concentrate) (Unknown Strength) CAPSULE (Unknown Dose) PO DAILY SUPPLEMENT (Reported) Simvastatin (SIMVASTATIN*) 80 MG TABLET 1 TAB PO DAILY CHOLESTEROL (Reported) Ubidecarenone (Co Q-10) (Unknown Strength) CAPSULE (Unknown Dose) PO DAILY SUPPLEMENT (Reported) Triage Nurses Notes Reviewed? yes Onset: Gradual Duration: hour(s): Timing: recent history Injury Environment: home Severity: mild Modifying Factors: Improves With: rest. Worsens With: movement. Associated Symptoms: moving patients legs HPI: 83 yo woman from home, with advanced dementia, cared for by family members. Per son, "my sister cares for her 07/06.... she noticed that she seemed more uncomfortable in her legs... She seemed to be in pain during transfers." This was noticed early this morning. No known trauma or fall. No fever, chills, nausea, vomiting, diarrhea. Past History Travel History Traveled to [place] past 21 day No Medical History Any Pertinent Medical History? 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 No Review of Systems Review of Systems Constitutional: Reports: no symptoms. EENTM: Reports: no symptoms. Respiratory: Reports: no symptoms. Cardiovascular: Reports: no symptoms. GI: Reports: no symptoms. Genitourinary: Reports: no symptoms. Musculoskeletal: Reports: no symptoms. Skin: Reports: no symptoms. Neurological/Psychological: Reports: no symptoms. Hematologic/Endocrine: Reports: no symptoms. Immunologic/Allergic: Reports: no symptoms. All Other Systems: Reviewed and Negative Physical Exam Physical Exam General Appearance: well developed/nourished, mild distress Head: atraumatic, normal appearance Eyes: Bilateral: normal appearance, PERRL, EOMI. Ears, Nose, Throat: normal pharynx, normal ENT inspection Neck: normal inspection, supple, full range of motion Respiratory: normal breath sounds, chest non-tender, no respiratory distress, quiet respiration, lungs clear Cardiovascular: regular rate/rhythm Gastrointestinal: normal bowel sounds, soft, non-tender, no organomegaly Back: normal inspection, normal range of motion Extremities: bilateral hips, knees, ankles...crepitus but no tenderness. ROM is compromised by joint stiffness. no focal bony tendernes... no swelling at bilateral knees/ankles. Core Measures ACS in differential dx? No CVA/TIA Diagnosis: No Sepsis Present: No Sepsis Focused Exam Completed? No Progress Differential Diagnoses I considered the following diagnoses in my evaluation of the patient: hip/knee/ankle sprain vs fx vs contusion. Plan of Care: Orders Procedure Date/time Status XRY-AP PELVIS 07/18 542 Active XRY-KNEE COMPLETE RIGHT 07/18 542 Active XRY-KNEE COMPLETE LEFT 07/18 542 Active XRY-ANKLE 3 OR MORE VIEWS R 07/18 542 Active XRY-ANKLE 3 OR MORE VIEWS L 07/18 0542 Active Current Medications Sig/Amari Start time Last Medication Dose Stop Time Status Admin Acetaminophen 640 MG ONCE ONE 07/18 545 UNVr 07/18 (Children's 07/18 0546 0550 Acetaminophen) Ketorolac 15 MG ONE ONE 07/18 0545 UNVr 07/18 Tromethamine 07/18 0546 0550 (Toradol) Diagnostic Imaging: Viewed by Me: Radiology Read. Discussed w/RAD: Radiology Read. Radiology Impression: PATIENT: BENNIE KOLB PRESENT AGE: 83 PATIENT ACCOUNT NO: [id number] : 37 LOCATION: [facility] ORDERING PHYSICIAN: Everardo Ya MD SERVICE DATE: 07/18/18 EXAM TYPE: RAD - XRY-AP PELVIS EXAMINATION: PELVIS 1 VIEW CLINICAL INFORMATION: Pain. COMPARISON: February 08, 2018. TECHNIQUE: A supine view of the pelvis was attempted, though all views obtained are at significant obliquity. FINDINGS: Suboptimal study secondary to patient positioning. No fractures are identified. There is moderate hip joint space narrowing bilaterally. IMPRESSION: Limited study as stated above. No acute fractures demonstrable. DICTATED BY: Avelino Luna MD DATE/TIME DICTATED:07/18/18657 TOWER HAND:RAD.SAHU DATE/TIME TRANSCRIBED:07/18/18657 CONFIDENTIAL, DO NOT COPY WITHOUT APPROPRIATE AUTHORIZATION. <Electronically signed in Other Vendor System> SIGNED BY: Avelino Luna MD 07/18/18701, PATIENT: BENNIE KOLB PRESENT AGE: 83 PATIENT ACCOUNT NO: [id number] : 37 LOCATION: [facility] ORDERING PHYSICIAN: Everardo Ya MD SERVICE DATE: 07/18/18 EXAM TYPE: RAD - XRY-KNEE COMPLETE LEFT; XRY-KNEE COMPLETE RIGHT EXAMINATIONS: BILATERAL KNEES 2 VIEWS CLINICAL INFORMATION: Pain. COMPARISON: None. TECHNIQUE: AP and lateral views of each knee were obtained. FINDINGS: There are no fractures or dislocations. There is no knee joint effusion. There is no significant soft tissue swelling. There is a paucity of musculature noted. IMPRESSION: No acute fracture or joint effusion demonstrable. DICTATED BY: Avelino Luna MD DATE/TIME DICTATED:07/18/18658 TOWER HAND:RAD.SAHU DATE/ TIME TRANSCRIBED:07/18/18658 CONFIDENTIAL, DO NOT COPY WITHOUT APPROPRIATE AUTHORIZATION. <Electronically signed in Other Vendor System> SIGNED BY: Avelino Luna MD 07/18/18702, PATIENT: BENNIE KOLB PRESENT AGE: 83 PATIENT ACCOUNT NO: [id number] : 37 LOCATION: [facility] ORDERING PHYSICIAN: Everardo Ya MD SERVICE DATE: 07/18/18 EXAM TYPE: RAD - XRY-ANKLE 3 OR MORE VIEWS L; XRY-ANKLE 3 OR MORE VIEWS R EXAMINATION: XR ANKLE, BILATERAL CLINICAL INFORMATION: Pain after transfer. COMPARISON: None TECHNIQUE: 3 views of the left ankle and 2 views of the right ankle submitted. FINDINGS: Left ankle: Soft tissue thickening is seen at the Achilles tendon with calcification at the Achilles insertion. Alignment at the ankle joint is symmetric without fracture or dislocation seen. Right ankle: Alignment is normal without acute fracture or dislocation seen. IMPRESSION: Normal alignment. No fracture or dislocation is seen. DICTATED BY: Dank Du MD DATE/TIME DICTATED:07/18/18699 TOWER HAND:[email or web address] DATE/TIME TRANSCRIBED:07/18/18699 CONFIDENTIAL, DO NOT COPY WITHOUT APPROPRIATE AUTHORIZATION. <Electronically signed in Other Vendor System> SIGNED BY: Dank Du MD 07/18/18 0705 Initial ED EKG: none Departure Departure Disposition: HOME OR SELF CARE Condition: Stable Clinical Impression Primary Impression: Leg sprain Secondary Impressions: Osteoarthritis Referrals: Curly Neville MD (PCP/Family) Departure Forms: Customer Survey General Discharge Information Comments 07/18/18, 7:15am... xrays show no demonstrable fx... pt safe for discharge... discussed at length with son... Referred to case management to maximize home services. Critical Care Note Critical Care Note Critical Care Time: non-applicable
[2018-07-18 06:43] VITALS: BP 134/90
--- NOTE | 2018-07-18 07:02 | RADIOLOGY REPORT ---
EXAMINATION: PELVIS 1 VIEW CLINICAL INFORMATION: Pain. COMPARISON: February 08, 2018. TECHNIQUE: A supine view of the pelvis was attempted, though all views obtained are at significant obliquity. FINDINGS: Suboptimal study secondary to patient positioning. No fractures are identified. There is moderate hip joint space narrowing bilaterally. IMPRESSION: Limited study as stated above. No acute fractures demonstrable.
--- NOTE | 2018-07-18 07:03 | RADIOLOGY REPORT ---
EXAMINATIONS: BILATERAL KNEES 2 VIEWS CLINICAL INFORMATION: Pain. COMPARISON: None. TECHNIQUE: AP and lateral views of each knee were obtained. FINDINGS: There are no fractures or dislocations. There is no knee joint effusion. There is no significant soft tissue swelling. There is a paucity of musculature noted. IMPRESSION: No acute fracture or joint effusion demonstrable.
--- NOTE | 2018-07-18 07:05 | RADIOLOGY REPORT ---
EXAMINATION: XR ANKLE, BILATERAL CLINICAL INFORMATION: Pain after transfer. COMPARISON: None TECHNIQUE: 3 views of the left ankle and 2 views of the right ankle submitted. FINDINGS: Left ankle: Soft tissue thickening is seen at the Achilles tendon with calcification at the Achilles insertion. Alignment at the ankle joint is symmetric without fracture or dislocation seen. Right ankle: Alignment is normal without acute fracture or dislocation seen. IMPRESSION: Normal alignment. No fracture or dislocation is seen.
== END 2018-07-18 07:37 ==
LOC: ERH 05:27
DX: M19.90 Unspecified osteoarthritis, unspecified site (principal); M79.604 Pain in right leg; M79.605 Pain in left leg; G30.9 Alzheimer's disease, unspecified; I10 Essential (primary) hypertension; I25.10 Atherosclerotic heart disease of native coronary artery without angina pectoris; E78.5 Hyperlipidemia, unspecified
CPT/HCPCS: 72170; 73562-LT; 73562-RT; 73610-LT; 73610-RT; 96372; J1885